=== PATIENT | male | born 1950 | race Caucasian/White ===

== ENCOUNTER 2023-04-25 12:22 | Emergency (ER) | payer OTHER, SELFPAY ==
[2023-04-25] VITALS (7 sets, daily range): BP systolic 93–129; BP diastolic 70–85; PULSE 98–112; RESP 16–22; TEMP 36.9–37.2; O2SAT 97–98; BMI 28.8
--- NOTE | ~2023-04-25 | CT_ITS ---
EXAMINATION: CTA CHEST PE STUDY CLINICAL INFORMATION: Reason for Exam syncope, tachycardic, + dimer COMPARISON: No pertinent prior studies are available for comparison. TECHNIQUE: Prior to contrast administration, noncontrast localization images were obtained. After the administration of 65 mL of Omnipaque nonionic IV contrast, contiguous thin slice helical images were obtained through the thorax. Reformatted MIP images in the coronal and sagittal planes were obtained at the acquisition workstation. This CT examination was performed using dose optimization techniques as appropriate, variously including the following: *Automated exposure control *Adjustment of mA and/or kV according to patient size (this includes techniques or standardized protocols for targeted exams where dose is matched to indication/reason for exam; i.e. extremities or head) *Use of iterative reconstruction technique DLP: 540 mGy-cm. FINDINGS: The examination is degraded by patient respiratory motion during the acquisition phase. Despite this the bolus timing on this study was acceptable for visualization of the pulmonary arterial tree. There are no intraluminal pulmonary arterial filling defects present to suggest central pulmonary embolism. The lungs are clear. No abnormal pulmonary nodules or masses are appreciated. No significant hilar or mediastinal adenopathy. Small hiatal hernia. There is no evidence of pleural effusion or pneumothorax. The heart is normal in size. No evidence of ventricular septal bowing or right heart strain. Vascular calcification within the aorta and coronary vessels. There is no pericardial effusion or pericardial thickening. Limited evaluation of the upper abdominal viscera is unremarkable. CT/CT angio chest PE protocol IMPRESSION: 1. No evidence for central pulmonary emboli. No focal airspace disease. 2. Small hiatal hernia. 3. VTE: Negative.
--- NOTE | ~2023-04-25 | XR_ITS ---
EXAMINATION: CHEST 2 VIEWS CLINICAL INFORMATION: chest pain. COMPARISON: 03/05/2017. TECHNIQUE: PA and lateral views of the chest obtained. FINDINGS: The lungs are well expanded. No focal infiltrate, effusion, edema, or pneumothorax. Cardiac and mediastinal silhouettes are within normal limits for size. Degenerative changes in the spine. No acute bony abnormality seen XR/XR chest 2V IMPRESSION: No evidence of acute disease
--- NOTE | ~2023-04-25 | XR_ITS ---
EXAMINATION: XR HIP, RIGHT CLINICAL INFORMATION: Pain in the right hip COMPARISON: None available. TECHNIQUE: Two views of the right hip and AP pelvis. FINDINGS: Patient is status post placement of 3 compression screws for fracture of right femoral neck. The left hip is unremarkable. The position of hardware is satisfactory. Soft tissues unremarkable. XR/XR hip RT w PEL1V IMPRESSION: Interval healing of right femoral neck fracture with hardware in place
--- NOTE | 2023-04-25 12:32 | ECG_ITS ---
Test Reason : CHEST PAIN Blood Pressure : / mmHG Vent. Rate : 111 BPM Atrial Rate : 111 BPM P-R Int : 164 ms QRS Dur : 088 ms QT Int : 352 ms P-R-T Axes : 067 -58 055 degrees QTc Int : 478 ms Sinus tachycardia Left anterior fascicular block RSR' or QR pattern in V1 suggests right ventricular conduction delay Anteroseptal infarct (cited on or before 04-JAN-2016) Abnormal ECG When compared with ECG of 05-MAR-2017 10:22, Heart rate has decreased Referred By: Generic ED Physician Electronically Signed By:ISIAH PERALTA MD
--- NOTE | 2023-04-25 12:44 | ED.GENADULT ---
HPI - General Adult General Chief complaint: General Medical Stated complaint: Chest Pain R Hip Pain No Injury Time Seen by Provider: 04/25/23 16:46 Source: patient Mode of arrival: ambulatory Limitations: no limitations History of Present Illness HPI narrative: Patient comes to the ED c/o a syncopal episode. Patient states that he was walking, remembers that he lowered himself down to the floor all the way down without hitting his head. Then, when he woke up, patient was surrounded by people. Patient states that he likely passed out. Patient denies any chest pain or shortness of breath. Patient is recovering from an ORIF of the right hip, which was done approximately 2 months ago at [facility]. Patient complaining of right-sided hip pain since he had his surgery. Related Data Home Medications Medication Instructions Recorded Confirmed acetaminophen 325 mg tablet 650 mg PO Q6H PRN Pain 04/26/23 04/26/23 (Tylenol) aspirin 81 mg tablet,delayed See Rx Instructions .Route .COMPLEX 04/26/23 04/26/23 release aspirin 81 mg tablet,delayed See Rx Instructions .Route .COMPLEX 04/26/23 04/26/23 release atorvastatin 20 mg tablet 20 mg PO DAILY 04/26/23 04/26/23 duloxetine 30 mg capsule,delayed 90 mg PO DAILY 04/26/23 04/26/23 release fludrocortisone 0.1 mg tablet 0.1 mg PO DAILY 04/26/23 04/26/23 gabapentin 100 mg capsule 100 mg PO BID 04/26/23 04/26/23 insulin glargine 100 unit/mL (3 45 unit subcut BID 04/26/23 04/26/23 mL) subcutaneous pen (Lantus Solostar U-100 Insulin) oxycodone 5 mg tablet 5 mg PO TID PRN Pain 04/26/23 04/26/23 pantoprazole 20 mg tablet,delayed 20 mg PO DAILY@0630 04/26/23 04/26/23 release sennosides 8.6 mg tablet (senna) 8.6 mg PO BID 04/26/23 04/26/23 trazodone 50 mg tablet 25 mg PO BEDTIME 04/26/23 04/26/23 Allergies Allergy/AdvReac Type Severity Reaction Status Date / Time penicillin V Allergy Unknown Unknown Verified 04/25/23 19:36 Penicillins [PCN] Allergy Unknown SWELLING Verified 04/25/23 19:36 Sulfa (Sulfonamide Allergy Unknown Unknown Verified 04/25/23 19:36 Antibiotics) sulfamethoxazole Allergy Unknown DIFFICULTY Verified 04/25/23 19:36 [From BACTRIM] BREATHING trimethoprim [From BACTRIM] Allergy Unknown DIFFICULTY Verified 04/25/23 19:36 BREATHING Maple Flavor Allergy Unknown Unknown Uncoded 04/25/23 19:36 MAPLE SYRUP Allergy Unknown UNKNOWN Uncoded 04/25/23 19:36 Review of Systems Review of Systems: Constitutional : No Weight loss, No Fever, No Chills, No Night Sweats, No Fatigue, No Malaise ENT/Mouth : No Hearing loss, No Ear Pain, No Nasal Congestion, No Sinus Pain, No Hoarseness, No sore throat, No Rhinorrhea, No Swallowing Difficulty Eyes: No Eye Pain, No Swelling, No Redness, No Foreign Body, No Discharge, No Vision Changes Cardiovascular : No Chest Pain, No SOB, No Dyspnea on Exertion, No Orthopnea, No Edema, No Palpitations Respiratory : No Cough, No Sputum, No Wheezing, No Smoke Exposure, No Dyspnea Gastrointestinal : No Nausea, No Vomiting, No Diarrhea, No Constipation, No abdominal Pain, No Hematochezia, No Melena Genitourinary : no irregular bleeding, No Dysuria, No Urinary Frequency, No Hematuria, No Urinary Incontinence, No Urgency, No Flank Pain, No Urinary Flow Changes, No Hesitancy Musculoskeletal : Complaining of right hip pain since surgery 2 months ago No Myalgias, No Joint Swelling Skin : No Skin Lesions, No rash Neuro : No Weakness, No Numbness, No Paresthesias, complaining of a syncopal episode, No Dizziness, No Headache Psych : No Anxiety/Panic, No Depression, No SI/HI/AH/VH, No Social Issues, Heme/Lymph: No Bruising, No Bleeding,No Lymphadenopathy Endocrine : No Polyuria, No Polydipsia, No Temperature Intolerance [facility] Past Medical History Medical History (Updated 04/29/23 @ 00:03 by Serena Nguyen) Type 2 diabetes mellitus Hip fracture Social History Alcohol intake: never Smoked in Last 30 Days: No Use of substances other than those prescribed or required for medical reasons: No Advance Directives: Yes Advance Directives on File: Yes Advance Directives Date on File: 04/26/23 Physical Exam ED Vital Signs: Vital Signs - 24 hr 04/29/23 21:50 04/30/23 05:47 04/30/23 06:32 Temperature 98.3 F 97.7 F Pulse Rate 85 83 Respiratory Rate 18 19 16 Blood Pressure 132/78 106/70 Pulse Oximetry 97 98 Oxygen Delivery Method Room Air Room Air BMI result Body Mass Index 28.8 Const Other: Appearance: Alert. Oriented X3. No acute distress. Eyes: Pupils equal, round and reactive to light. ENT: Pharynx normal. Neck: Normal inspection. Neck supple. No lymph nodes noted. No crepitus CVS: Normal heart rate and rhythm. Pulses normal. Normal S1 and S2 Respiratory: No respiratory distress. Breath sounds normal. No Wheezing. No rales Abdomen: Soft and nontender. No rigidity. No distention. Skin: Skin warm and dry. Normal skin color. Normal skin turgor. No signs of trauma Extremities: No lower extremity edema. No Lacerations. No Rash Neuro: Oriented X 3. No motor deficit. No sensory deficit. Moving all extremities. No slurred speech. CN 2 through 12 grossly intact Psych: calm, cooperative, normal affect Course Course Course Narrative: This is an RME: Additional HPI, ROS, PE not included below will be deferred to primary provider. This is a [id number], with unknown PMHx but had recent ORIF, presenting to the emergency department with complaints of right hip pain. He also endorses some chest pain, nausea, and weakness. He states that he has a right hip fracture 2 weeks ago and had this pinned together and is concerned that it is coming out . No recent falls. Pt is homeless, came with [facility]'s social workers concerned as he was complaining of chest pain and worsening right hip pain today. Plan: Labs, cxr, r hip xray w/ pelvis ordered. Reevaluation(s) Reevaluation #1: No complaints from nursing overnight. Vital signs reviewed and stable. Medications reconciled for this morning. Pending physical therapy evaluation and case management involvement Reevaluation #2: At this time physician observation to be continued. Uneventful night per nursing. Vital signs are stable. Med reconciliation done. Pending PT and case management. Will continue to monitor Time: 07:16 Reevaluation #3: 04/28/23--1410--physician observation continued. Vital signs stable. Physical therapy attempted to evaluate patient on 04/26 however patient declined participation. Case management following for discharge needs 04/29/23 1800-- vital signs have remained stable. No acute overnight events. Patient now requesting physical therapy. New order placed. Patient noted to have UTI > will treat with ceftin bid. Case management continuing to follow. Physician observation continued. 04/30/23 0745-- Vital signs have remained stable overnight. No acute overnight events per nursing report. Patient currently being treated for UTI. Physical therapy has evaluated patient and recommends short-term rehab. Case management continuing to follow for placement. Physician observation continued. 1409 04/30/23-- Spoke with Vania from case management. Patient will be discharged home as he will not qualify for [employer]. He has been up and ambulating with physical therapy. Physician observation ended. Medications Administered Generic Name Dose Route Start Last Admin Trade Name Freq PRN Reason Stop Dose Admin Acetaminophen 650 mg 04/26/23 14:26 04/30/23 05:29 Acetaminophen 325 Mg Tablet PO 650 mg QID PRN Administration Pain, Mild (Pain Scale 1-3) Aspirin 81 mg 04/27/23 09:00 04/30/23 08:32 Aspirin Enteric Coated 81 Mg Tablet. PO 81 mg DAILY DORETHA Administration Atorvastatin Calcium 20 mg 04/26/23 09:00 04/30/23 08:32 Atorvastatin Calcium 20 Mg Tablet PO 20 mg DAILY DORETHA Administration Cefuroxime Axetil 250 mg 04/30/23 06:00 04/30/23 05:27 Cefuroxime Axetil 250 Mg Tablet PO 250 mg Q12H DORETHA Administration Duloxetine HCl 90 mg 04/26/23 09:00 04/30/23 08:31 Duloxetine Hcl 30 Mg Capsule. PO 90 mg DAILY DORETHA Administration Fludrocortisone Acetate 0.1 mg 04/27/23 09:00 04/30/23 08:32 Fludrocortisone Acetate 0.1 Mg Tablet PO 0.1 mg DAILY DORETHA Administration Gabapentin 100 mg 04/26/23 09:00 04/29/23 15:24 Gabapentin 100 Mg Capsule PO 100 mg DAILY DORETHA Administration Gabapentin 100 mg 04/26/23 15:04 04/30/23 09:59 Gabapentin 100 Mg Capsule PO 100 mg TID PRN Administration Pain, Moderate(Pain Scale 4-6) Ibuprofen 600 mg 04/26/23 15:04 04/30/23 09:59 Ibuprofen 600 Mg Tablet PO 600 mg TID PRN Administration Pain, Mild (Pain Scale 1-3) Insulin Glargine 45 unit 04/27/23 09:00 04/30/23 08:33 Insulin Glargine,Hum.Rec.Anlog 100 Unit/Ml 10 Ml Vial SUBCUT 45 unit BID [facility] Administration Insulin Human Lispro 0 unit 04/29/23 16:30 04/30/23 11:37 Insulin Lispro 100 Unit/Ml 3 Ml Vial SUBCUT 2 unit QIDACHS [facility] Administration Protocol Omeprazole 20 mg 04/26/23 11:45 04/30/23 05:27 Omeprazole 20 Mg Capsule.Dr PO 20 mg DAILY@0630 [facility] Administration Oxycodone HCl 5 mg 04/26/23 09:00 04/30/23 08:31 Oxycodone Hcl Immed Release 5 Mg Tablet PO 5 mg TID PRN Administration Pain, Severe (Pain Scale 7-10) Senna 8.6 mg 04/27/23 09:00 04/30/23 08:31 Sennosides 8.6 Mg Tablet PO 8.6 mg BID [facility] Administration Trazodone HCl 25 mg 04/26/23 21:00 04/29/23 21:45 Trazodone Hcl 50 Mg Tablet PO 25 mg BEDTIME [facility] Administration Discontinued Medications Generic Name Dose Route Start Last Admin Trade Name Freq PRN Reason Stop Dose Admin Acetaminophen 975 mg 04/25/23 20:07 04/25/23 20:17 Acetaminophen 325 Mg Tablet PO 04/25/23 20:08 975 mg ONCE ONE Administration Cefuroxime Axetil 250 mg 04/29/23 18:04 04/29/23 18:32 Cefuroxime Axetil 250 Mg Tablet PO 04/29/23 18:05 250 mg ONCE ONE Administration Cefuroxime Axetil 250 mg 04/29/23 21:00 04/29/23 21:42 Cefuroxime Axetil 250 Mg Tablet PO Not Given BID [facility] Diphenhydramine HCl 50 mg 04/26/23 00:59 04/26/23 01:07 Diphenhydramine Hcl 25 Mg Capsule PO 04/26/23 01:00 50 mg ONCE ONE Administration Insulin Human Lispro 5 unit 04/27/23 16:51 04/27/23 17:16 Insulin Lispro 100 Unit/Ml 3 Ml Vial SUBCUT 04/27/23 16:52 5 unit ONCE ONE Administration Iohexol 100 ml 04/25/23 18:50 04/25/23 18:51 Iohexol 350 Mg/Ml 100 Ml Infus..Btl IV 04/25/23 18:51 65 ml ONCE ONE Administration Ketorolac Tromethamine 30 mg 04/25/23 21:32 04/25/23 22:05 Ketorolac Tromethamine 30 Mg/Ml Vial IVPUSH 04/25/23 21:33 30 mg ONCE ONE Administration Levofloxacin 500 mg 04/25/23 20:07 04/25/23 20:17 Levofloxacin 500 Mg Tablet PO 04/25/23 20:08 500 mg ONCE ONE Administration Lorazepam 2 mg 04/26/23 00:59 04/26/23 01:07 Lorazepam 1 Mg Tablet PO 04/26/23 01:00 2 mg ONCE ONE Administration Morphine Sulfate 2 mg 04/25/23 22:16 04/25/23 22:31 Morphine Sulfate 4 Mg/Ml Cartridge IVPUSH 04/25/23 22:17 2 mg ONCE ONE Administration Protocol Oxycodone HCl 5 mg 04/26/23 00:59 04/26/23 01:07 Oxycodone Hcl Immed Release 5 Mg Tablet PO 04/26/23 01:00 5 mg ONCE ONE Administration Oxycodone HCl 10 mg 04/27/23 23:13 04/28/23 05:59 Oxycodone Hcl Immed Release 5 Mg Tablet PO 04/27/23 23:14 10 mg ONCE ONE Administration Medical Decision Making Medical Decision Making MDM Narrative: Sodium 133, no correction needed-my interpretation of labs: Normal hematology, platelets a bit elevated at 557. Troponin 1. Negative -my interpretation of EKG: Sinus tachycardia, heart rate 111, no ST segment depression with patient, no T-wave inversions, QTC 478 -urine toxicology, alcohol level and D-dimer pending -urine toxicology negative, alcohol level negative, D-dimer positive -my interpretation of CTA of the lungs: No DVT -CT scan for pulmonary embolism negative -patient has a UTI, cefuroxime was given in the emergency room -I diligent was attempted with attack. Patient states that he has too much pain in the right hip and cannot walk. Not even with a walker. -care team consult and case management consult pending -Physician observation started at 21:00 -given the patient's inability to walk, it is likely that the patient fell secondary to hip pain Differential Diagnosis Differential Diagnoses: The differential diagnosis associated with the presentation includes (Mechanical fall, near syncope, syncope, PE) Admission/Observation Consideration of admission/observation: Escalation of care including admission/observation considered (Given patient's initial history and presentation, admission was considered.) Lab Data MDM Lab Attestation statement: I reviewed the patient's lab results. 04/25/23 13:12 04/25/23 13:12 Labs: Lab Results 04/25/23 04/25/23 04/25/23 Range/Units 13:12 17:21 19:36 WBC 8.1 (4.8-10.8) X10*3/uL RBC 5.09 (4.60-5.80) X10*6/uL Hgb 14.2 (14.0-18.0) g/dl Hct 42.3 (42.0-52.0) % MCV 83.1 (80.0-98.0) fL MCH 27.9 (27.0-33.0) pg MCHC 33.6 (31.0-36.0) g/dl RDW 13.4 (11.0-16.0) % Plt Count 557 H (160-400) X10*3/uL MPV 9.1 L (9.4-12.4) fL Immature Gran % (Auto) 0.2 (0.0-0.4) % Neut % (Auto) 77.6 H (45-73) % Lymph % (Auto) 12.4 L (20-40) % [place] % (Auto) 9.0 (2-11) % Eos % (Auto) 0.4 (0-4) % Baso % (Auto) 0.4 (0-2) % Lymph # (Auto) 1.0 L (1.2-4.9) X10*3/uL [place] # (Auto) 0.7 (0.1-1.2) X10*3/uL Eos # (Auto) 0.0 (0.0-0.4) X10*3/uL Baso # (Auto) 0.0 (0.0-0.2) X10*3/uL Abs Immat Gran (auto) 0.02 (0.00-0.03) X10*3/uL Absolute Neuts (auto) 6.3 (2.0-8.3) x10*3/uL Absolute Nucleated RBC 0.000 (0.0-0.012) X10*3/uL Nucleated RBC % (auto) 0.0 (0.0-0.2) /100WBC D-Dimer High Sensitivty 530 NG/ML Sodium 133 L (135-145) mmol/L Potassium 4.8 (3.3-5.1) mmol/L Chloride 102 (96-108) mmol/L Carbon Dioxide 22 (22-29) mmol/L Anion Gap 15 (12-20) BUN 20 H (9-16) mg/dL Creatinine 0.92 (0.5-1.4) mg/dL Estim Creat Clear Calc 89.8 Estimated GFR > 60 POC Glucose (60-115) mg/dL Random Glucose 266 H (60-115) mg/dL Calcium 9.9 (8.4-10.2) mg/dL Magnesium 1.9 (1.6-2.6) mg/dL Total Bilirubin 0.5 (0.0-1.0) mg/dL Direct Bilirubin 0.2 (0.0-0.5) mg/dL AST 14 (5-37) U/L ALT 15 (0-40) U/L Alkaline Phosphatase 217 H (39-117) U/L Troponin I High Sens 6.0 (<3.5-35.0) ng/L Total Protein 8.3 H (6.5-8.0) g/dL Albumin 4.0 (3.5-5.0) g/dL Urine Color Yellow Urine Appearance Turbid Urine pH 6.0 (5.0-9.0) Ur Specific [place] 1.025 (1.005-1.025) Urine Protein 30 (1+) H (Neg-Trace) mg/dL Urine Glucose (UA) 500 H (Negative) mg/dL Urine Ketones Trace (Negative) mg/dL Urine Blood Small (1+) H (Negative) Urine Nitrite Negative (Negative) Ur Leukocyte Esterase Large (3+) H (Negative) Urine RBC 0-2 (0-2) /HPF Urine WBC >50 H (0-5) /HPF Ur Squamous Epith Cells 3-5 (0-2) /HPF Urine Bacteria 1+ (None Seen) Hyaline Casts 0-2 (0-2) /LPF Urine Yeast Present Urine Opiates Screen Not Detected (Not Detect) Urine Fentanyl Screen Not Detected (Not Detect) Ur Barbiturates Screen Not Detected (Not Detect) Ur Phencyclidine Scrn Not Detected (Not Detect) Ur Amphetamines Screen Not Detected (Not Detect) U Benzodiazepines Scrn Not Detected (Not Detect) Urine Cocaine Screen Not Detected (Not Detect) U Marijuana (THC) Screen Not Detected (Not Detect) Ethyl Alcohol 11 mg/dL COVID-19 (JULIANNA) (Negative) COVID-19 Clin Com 04/26/23 04/27/23 04/27/23 Range/Units 08:59 08:04 11:48 WBC (4.8-10.8) X10*3/uL RBC (4.60-5.80) X10*6/uL Hgb (14.0-18.0) g/dl Hct (42.0-52.0) % MCV (80.0-98.0) fL MCH (27.0-33.0) pg MCHC (31.0-36.0) g/dl RDW (11.0-16.0) % Plt Count (160-400) X10*3/uL MPV (9.4-12.4) fL Immature Gran % (Auto) (0.0-0.4) % Neut % (Auto) (45-73) % Lymph % (Auto) (20-40) % [place]acken % (Auto) (2-11) % Eos % (Auto) (0-4) % Baso % (Auto) (0-2) % Lymph # (Auto) (1.2-4.9) X10*3/uL [place] # (Auto) (0.1-1.2) X10*3/uL Eos # (Auto) (0.0-0.4) X10*3/uL Baso # (Auto) (0.0-0.2) X10*3/uL Abs Immat Gran (auto) (0.00-0.03) X10*3/uL Absolute Neuts (auto) (2.0-8.3) x10*3/uL Absolute Nucleated RBC (0.0-0.012) X10*3/uL Nucleated RBC % (auto) (0.0-0.2) /100WBC D-Dimer High Sensitivty NG/ML Sodium (135-145) mmol/L Potassium (3.3-5.1) mmol/L Chloride (96-108) mmol/L Carbon Dioxide (22-29) mmol/L Anion Gap (12-20) BUN (9-16) mg/dL Creatinine (0.5-1.4) mg/dL Estim Creat Clear Calc Estimated GFR POC Glucose 259 H 269 H (60-115) mg/dL Random Glucose (60-115) mg/dL Calcium (8.4-10.2) mg/dL Magnesium (1.6-2.6) mg/dL Total Bilirubin (0.0-1.0) mg/dL Direct Bilirubin (0.0-0.5) mg/dL AST (5-37) U/L ALT (0-40) U/L Alkaline Phosphatase (39-117) U/L Troponin I High Sens (<3.5-35.0) ng/L Total Protein (6.5-8.0) g/dL Albumin (3.5-5.0) g/dL Urine Color Urine Appearance Urine pH (5.0-9.0) Ur Specific [place] (1.005-1.025) Urine Protein (Neg-Trace) mg/dL Urine Glucose (UA) (Negative) mg/dL Urine Ketones (Negative) mg/dL Urine Blood (Negative) Urine Nitrite (Negative) Ur Leukocyte Esterase (Negative) Urine RBC (0-2) /HPF Urine WBC (0-5) /HPF Ur Squamous Epith Cells (0-2) /HPF Urine Bacteria (None Seen) Hyaline Casts (0-2) /LPF Urine Yeast Urine Opiates Screen (Not Detect) Urine Fentanyl Screen (Not Detect) Ur Barbiturates Screen (Not Detect) Ur Phencyclidine Scrn (Not Detect) Ur Amphetamines Screen (Not Detect) U Benzodiazepines Scrn (Not Detect) Urine Cocaine Screen (Not Detect) U Marijuana (THC) Screen (Not Detect) Ethyl Alcohol mg/dL COVID-19 (JULIANNA) Negative (Negative) COVID-19 Clin Com 04/27/23 04/27/23 04/28/23 Range/Units 15:26 19:03 19:22 WBC (4.8-10.8) X10*3/uL RBC (4.60-5.80) X10*6/uL Hgb (14.0-18.0) g/dl Hct (42.0-52.0) % MCV (80.0-98.0) fL MCH (27.0-33.0) pg MCHC (31.0-36.0) g/dl RDW (11.0-16.0) % Plt Count (160-400) X10*3/uL MPV (9.4-12.4) fL Immature Gran % (Auto) (0.0-0.4) % Neut % (Auto) (45-73) % Lymph % (Auto) (20-40) % [place] % (Auto) (2-11) % Eos % (Auto) (0-4) % Baso % (Auto) (0-2) % Lymph # (Auto) (1.2-4.9) X10*3/uL [place] # (Auto) (0.1-1.2) X10*3/uL Eos # (Auto) (0.0-0.4) X10*3/uL Baso # (Auto) (0.0-0.2) X10*3/uL Abs Immat Gran (auto) (0.00-0.03) X10*3/uL Absolute Neuts (auto) (2.0-8.3) x10*3/uL Absolute Nucleated RBC (0.0-0.012) X10*3/uL Nucleated RBC % (auto) (0.0-0.2) /100WBC D-Dimer High Sensitivty NG/ML Sodium (135-145) mmol/L Potassium (3.3-5.1) mmol/L Chloride (96-108) mmol/L Carbon Dioxide (22-29) mmol/L Anion Gap (12-20) BUN (9-16) mg/dL Creatinine (0.5-1.4) mg/dL Estim Creat Clear Calc Estimated GFR POC Glucose 224 H 169 H 175 H (60-115) mg/dL Random Glucose (60-115) mg/dL Calcium (8.4-10.2) mg/dL Magnesium (1.6-2.6) mg/dL Total Bilirubin (0.0-1.0) mg/dL Direct Bilirubin (0.0-0.5) mg/dL AST (5-37) U/L ALT (0-40) U/L Alkaline Phosphatase (39-117) U/L Troponin I High Sens (<3.5-35.0) ng/L Total Protein (6.5-8.0) g/dL Albumin (3.5-5.0) g/dL Urine Color Urine Appearance Urine pH (5.0-9.0) Ur Specific [place] (1.005-1.025) Urine Protein (Neg-Trace) mg/dL Urine Glucose (UA) (Negative) mg/dL Urine Ketones (Negative) mg/dL Urine Blood (Negative) Urine Nitrite (Negative) Ur Leukocyte Esterase (Negative) Urine RBC (0-2) /HPF Urine WBC (0-5) /HPF Ur Squamous Epith Cells (0-2) /HPF Urine Bacteria (None Seen) Hyaline Casts (0-2) /LPF Urine Yeast Urine Opiates Screen (Not Detect) Urine Fentanyl Screen (Not Detect) Ur Barbiturates Screen (Not Detect) Ur Phencyclidine Scrn (Not Detect) Ur Amphetamines Screen (Not Detect) U Benzodiazepines Scrn (Not Detect) Urine Cocaine Screen (Not Detect) U Marijuana (THC) Screen (Not Detect) Ethyl Alcohol mg/dL COVID-19 (JULIANNA) (Negative) COVID-19 Clin Com 04/29/23 04/29/23 04/29/23 Range/Units 07:26 11:38 16:32 WBC (4.8-10.8) X10*3/uL RBC (4.60-5.80) X10*6/uL Hgb (14.0-18.0) g/dl Hct (42.0-52.0) % MCV (80.0-98.0) fL MCH (27.0-33.0) pg MCHC (31.0-36.0) g/dl RDW (11.0-16.0) % Plt Count (160-400) X10*3/uL MPV (9.4-12.4) fL Immature Gran % (Auto) (0.0-0.4) % Neut % (Auto) (45-73) % Lymph % (Auto) (20-40) % [place] % (Auto) (2-11) % Eos % (Auto) (0-4) % Baso % (Auto) (0-2) % Lymph # (Auto) (1.2-4.9) X10*3/uL [place] # (Auto) (0.1-1.2) X10*3/uL Eos # (Auto) (0.0-0.4) X10*3/uL Baso # (Auto) (0.0-0.2) X10*3/uL Abs Immat Gran (auto) (0.00-0.03) X10*3/uL Absolute Neuts (auto) (2.0-8.3) x10*3/uL Absolute Nucleated RBC (0.0-0.012) X10*3/uL Nucleated RBC % (auto) (0.0-0.2) /100WBC D-Dimer High Sensitivty NG/ML Sodium (135-145) mmol/L Potassium (3.3-5.1) mmol/L Chloride (96-108) mmol/L Carbon Dioxide (22-29) mmol/L Anion Gap (12-20) BUN (9-16) mg/dL Creatinine (0.5-1.4) mg/dL Estim Creat Clear Calc Estimated GFR POC Glucose 68 149 H 152 H (60-115) mg/dL Random Glucose (60-115) mg/dL Calcium (8.4-10.2) mg/dL Magnesium (1.6-2.6) mg/dL Total Bilirubin (0.0-1.0) mg/dL Direct Bilirubin (0.0-0.5) mg/dL AST (5-37) U/L ALT (0-40) U/L Alkaline Phosphatase (39-117) U/L Troponin I High Sens (<3.5-35.0) ng/L Total Protein (6.5-8.0) g/dL Albumin (3.5-5.0) g/dL Urine Color Urine Appearance Urine pH (5.0-9.0) Ur Specific [place] (1.005-1.025) Urine Protein (Neg-Trace) mg/dL Urine Glucose (UA) (Negative) mg/dL Urine Ketones (Negative) mg/dL Urine Blood (Negative) Urine Nitrite (Negative) Ur Leukocyte Esterase (Negative) Urine RBC (0-2) /HPF Urine WBC (0-5) /HPF Ur Squamous Epith Cells (0-2) /HPF Urine Bacteria (None Seen) Hyaline Casts (0-2) /LPF Urine Yeast Urine Opiates Screen (Not Detect) Urine Fentanyl Screen (Not Detect) Ur Barbiturates Screen (Not Detect) Ur Phencyclidine Scrn (Not Detect) Ur Amphetamines Screen (Not Detect) U Benzodiazepines Scrn (Not Detect) Urine Cocaine Screen (Not Detect) U Marijuana (THC) Screen (Not Detect) Ethyl Alcohol mg/dL COVID-19 (JULIANNA) (Negative) COVID-19 Clin Com 04/29/23 04/30/23 04/30/23 Range/Units 21:44 07:14 11:32 WBC (4.8-10.8) X10*3/uL RBC (4.60-5.80) X10*6/uL Hgb (14.0-18.0) g/dl Hct (42.0-52.0) % MCV (80.0-98.0) fL MCH (27.0-33.0) pg MCHC (31.0-36.0) g/dl RDW (11.0-16.0) % Plt Count (160-400) X10*3/uL MPV (9.4-12.4) fL Immature Gran % (Auto) (0.0-0.4) % Neut % (Auto) (45-73) % Lymph % (Auto) (20-40) % [place] % (Auto) (2-11) % Eos % (Auto) (0-4) % Baso % (Auto) (0-2) % Lymph # (Auto) (1.2-4.9) X10*3/uL [place] # (Auto) (0.1-1.2) X10*3/uL Eos # (Auto) (0.0-0.4) X10*3/uL Baso # (Auto) (0.0-0.2) X10*3/uL Abs Immat Gran (auto) (0.00-0.03) X10*3/uL Absolute Neuts (auto) (2.0-8.3) x10*3/uL Absolute Nucleated RBC (0.0-0.012) X10*3/uL Nucleated RBC % (auto) (0.0-0.2) /100WBC D-Dimer High Sensitivty NG/ML Sodium (135-145) mmol/L Potassium (3.3-5.1) mmol/L Chloride (96-108) mmol/L Carbon Dioxide (22-29) mmol/L Anion Gap (12-20) BUN (9-16) mg/dL Creatinine (0.5-1.4) mg/dL Estim Creat Clear Calc Estimated GFR POC Glucose 163 H 61 178 H (60-115) mg/dL Random Glucose (60-115) mg/dL Calcium (8.4-10.2) mg/dL Magnesium (1.6-2.6) mg/dL Total Bilirubin (0.0-1.0) mg/dL Direct Bilirubin (0.0-0.5) mg/dL AST (5-37) U/L ALT (0-40) U/L Alkaline Phosphatase (39-117) U/L Troponin I High Sens (<3.5-35.0) ng/L Total Protein (6.5-8.0) g/dL Albumin (3.5-5.0) g/dL Urine Color Urine Appearance Urine pH (5.0-9.0) Ur Specific [place] (1.005-1.025) Urine Protein (Neg-Trace) mg/dL Urine Glucose (UA) (Negative) mg/dL Urine Ketones (Negative) mg/dL Urine Blood (Negative) Urine Nitrite (Negative) Ur Leukocyte Esterase (Negative) Urine RBC (0-2) /HPF Urine WBC (0-5) /HPF Ur Squamous Epith Cells (0-2) /HPF Urine Bacteria (None Seen) Hyaline Casts (0-2) /LPF Urine Yeast Urine Opiates Screen (Not Detect) Urine Fentanyl Screen (Not Detect) Ur Barbiturates Screen (Not Detect) Ur Phencyclidine Scrn (Not Detect) Ur Amphetamines Screen (Not Detect) U Benzodiazepines Scrn (Not Detect) Urine Cocaine Screen (Not Detect) U Marijuana (THC) Screen (Not Detect) Ethyl Alcohol mg/dL COVID-19 (JULIANNA) (Negative) COVID-19 Clin Com Independent Interpretation I performed an independent interpretation of an: CT Scan Radiology Impression Discussion of test interpretation with radiology: I have reviewed the radiologist's reading. Radiologist Impression: FINDINGS: The examination is degraded by patient respiratory motion during the acquisition phase. Despite this the bolus timing on this study was acceptable for visualization of the pulmonary arterial tree. There are no intraluminal pulmonary arterial filling defects present to suggest central pulmonary embolism. The lungs are clear. No abnormal pulmonary nodules or masses are appreciated. No significant hilar or mediastinal adenopathy. Small hiatal hernia. There is no evidence of pleural effusion or pneumothorax. The heart is normal in size. No evidence of ventricular septal bowing or right heart strain. Vascular calcification within the aorta and coronary vessels. There is no pericardial effusion or pericardial thickening. Limited evaluation of the upper abdominal viscera is unremarkable. CT/CT angio chest PE protocol IMPRESSION: 1. No evidence for central pulmonary emboli. No focal airspace disease. 2. Small hiatal hernia. 3. VTE: Negative. Critical Care Time Critical Care Time Critical Care Time: Yes Total Critical Care Time: 60 Attestation: I have personally provided critical care time. Time includes review of lab data, radiology results, discussion with consultants, and monitoring for potential decompensation. Intervention performed as documented. Discharge Plan Discharge Clinical Impression: Chronic hip pain, Syncope Patient Disposition: Home, Self-Care Prescriptions: No Action atorvastatin 20 mg tablet 20 mg PO DAILY trazodone 50 mg tablet 25 mg PO BEDTIME pantoprazole 20 mg tablet,delayed release (DR/EC) 20 mg PO DAILY@0630 gabapentin 100 mg capsule 100 mg PO BID oxycodone 5 mg tablet 5 mg PO TID PRN (Reason: Pain) duloxetine 30 mg capsule,delayed release(DR/EC) 90 mg PO DAILY fludrocortisone 0.1 mg tablet 0.1 mg PO DAILY insulin glargine [Lantus Solostar U-100 Insulin] 100 unit/mL (3 mL) insulin pen 45 unit subcut BID sennosides [senna] 8.6 mg Tablet 8.6 mg PO BID acetaminophen [Tylenol] 325 mg Tablet 650 mg PO Q6H PRN (Reason: Pain) aspirin 81 mg Tablet,Delayed Release (Dr/Ec) See Rx Instructions .ROUTE .COMPLEX Rx Instructions: 81 mg orally BID ;END DATE: 05/04/23 aspirin 81 mg Tablet,Delayed Release (/Ec) See Rx Instructions .ROUTE .COMPLEX Rx Instructions: 81 mg orally daily ;START DATE: 05/05/23
[2023-04-25 13:18] LABS: MANUAL DIFF FLAG NO
[2023-04-25 13:20] LABS: Basophils Percent Auto 0.4 % (0-2); Eosinophils Percent Auto 0.4 % (0-4); Hematocrit 42.3 % (42.0-52.0); Hemoglobin 14.2 g/dl (14.0-18.0); Imm Gran Abs Auto 0.02 X10*3/uL (0.00-0.03); Imm Gran Pct Auto 0.2 % (0.0-0.4); Lymphocytes Percent Auto 12.4 % (20-40); Mean Corpuscular HGB Conc 33.6 g/dl (31.0-36.0); Mean Corpuscular Hemoglobin 27.9 pg (27.0-33.0); Mean Corpuscular Volume 83.1 fL (80.0-98.0); Mean Platelet Volume 9.1 fL (9.4-12.4); Monocytes Absolute Auto 0.7 X10*3/uL (0.1-1.2); Neutrophils Absolute Auto 6.3 x10*3/uL (2.0-8.3); Neutrophils Percent Auto 77.6 % (45-73); Platelet Count 557 X10*3/uL (160-400); Red Blood Count 5.09 X10*6/uL (4.60-5.80); Red Cell Distribution Width 13.4 % (11.0-16.0); White Blood Count 8.1 X10*3/uL (4.8-10.8)
[2023-04-25 13:45] LABS: Alanine Aminotransferase 15 U/L (0-40); Alkaline Phosphatase 217 U/L (39-117); Aspartate Amino Transferase 14 U/L (5-37); Bilirubin Direct 0.2 mg/dL (0.0-0.5); Bilirubin Total 0.5 mg/dL (0.0-1.0); Blood Urea Nitrogen 20 mg/dL (9-16); Calcium 9.9 mg/dL (8.4-10.2); Carbon Dioxide 22 mmol/L (22-29); Creatinine Clr Calc Pharmacy 89.8; Estimated Glomerular Filt Rate > 60; Glucose Random 266 mg/dL (60-115); Total Protein 8.3 g/dL (6.5-8.0)
[2023-04-25 13:54] LABS: Anion Gap 15 (12-20); Chloride 102 mmol/L (96-108); Potassium 4.8 mmol/L (3.3-5.1); Sodium 133 mmol/L (135-145)
[2023-04-25 17:47] LABS: D Dimer High Sensitivity 530 NG/ML
[2023-04-25 17:58] LABS: Ethanol 11 mg/dL; Magnesium 1.9 mg/dL (1.6-2.6)
[2023-04-25] MEDS: iohexoL 350 MG/ML 100 ML INFUS..BTL IV (18:51)
--- NOTE | 2023-04-25 19:24 | MHC.EDTECH ---
This pct assumed care of pt at 1900 ,vitals taken ,pt was given dinner ate 100 % of meal ,Call flores within Pt reach .
--- NOTE | 2023-04-25 19:38 | MHC.EDTECH ---
Patient urine sample collected and sent to lab .
[2023-04-25 19:50] LABS: Appearance Urine Turbid; Color Urine Yellow; Glucose Urine UA 500 mg/dL (Negative); Leukocyte Esterase Urine Large (3+) (Negative); Nitrite Urine Negative (Negative); Specific Gravity - Urine 1.025 (1.005-1.025); UMIC TRIGGER UACC YES; Urine Blood Small (1+) (Negative); Urine Ketones Trace mg/dL (Negative); Urine Protein 30 (1+) mg/dL (Neg-Trace)
[2023-04-25 19:58] LABS: Amphetamine Screen Urine Not Detected (Not Detect); Barbiturates, Urine Not Detected (Not Detect); Benzodiazepines Screen Urine Not Detected (Not Detect); Cannabinoid Screen Urine Not Detected (Not Detect); Cocaine Screen Urine Not Detected (Not Detect); Fentanyl, urine Not Detected (Not Detect); Opiate Screen Urine Not Detected (Not Detect); Phencyclidine Screen Urine Not Detected (Not Detect)
[2023-04-25] MEDS: levoFLOXacin 500 MG TABLET PO (20:17)
[2023-04-25] MEDS: Acetaminophen 325 MG TABLET 975 MG PO (20:17)
--- NOTE | 2023-04-25 20:20 | PC.NURSE ---
pt c/o 10/10 right leg pain at this time. medication administered per provider order. will perform ambulation trial shortly.
[2023-04-25 20:28] LABS: Bacteria Urine 1+ (None Seen); Hyaline Casts Urine 0-2 /LPF (0-2); RBC Urine 0-2 /HPF (0-2); UACC Culture Trigger YES; WBC Urine >50 /HPF (0-5)
--- NOTE | 2023-04-25 20:59 | MHC.EDTECH ---
Per Provider order ,this pct tried to walk walk Patient with a walker ,pt stand up ,took a couple of steps and said i can't walk ,because of pain,Provider and RN aware .
[2023-04-25] MEDS: Ketorolac Tromethamine 30 MG/ML VIAL IVPUSH (22:05)
[2023-04-25] MEDS: Morphine Sulfate 4 MG/ML CARTRIDGE 2 MG IVPUSH (22:31)
--- NOTE | 2023-04-25 22:34 | PC.NURSE ---
Patient continues to complain of lower back and right hip pain. Patient reports pain has been ranging from 7/10-10/10. Dr. Arora made aware. Patient medicated with Morphine 2 mg IV push, effect pending.
[2023-04-26] VITALS (8 sets, daily range): BP systolic 122–156; BP diastolic 71–86; PULSE 74–100; RESP 16–18; TEMP 36.5–36.8; O2SAT 95–97
[2023-04-26] MEDS: diphenhydrAMINE HCL 25 MG CAPSULE 50 MG PO (01:07)
[2023-04-26] MEDS: LORazepam 1 MG TABLET 2 MG PO (01:07)
[2023-04-26] MEDS: oxyCODONE HCl Immed Release 5 MG TABLET PO ×2 (01:07→12:27)
[2023-04-26 09:21] LABS: COVID-19 Test Negative (Negative); IDNOW Serial# BCCEAD1C
--- NOTE | 2023-04-26 10:30 | PC.NURSE ---
pt settled in to overflow from ed. tv placed on. new sheets. call flores in reach, bed alarm on. no distress. breathing well. +CMS. calm, cooperative, aox4.
--- NOTE | 2023-04-26 11:12 | PC.NURSE ---
pharmacy at bedside completing med rec.
--- NOTE | 2023-04-26 11:21 | PC.NURSE ---
awaiting pharmacy to verify meds- phmar tech done w med rec at bedside now
--- NOTE | 2023-04-26 11:35 | PHA.MEDREC ---
Pharmacy Consult ? Medication Reconciliation Pharmacy has completed the medication reconciliation. Spoke to patient to confirm meds. Patient confirmed atorvastatin, cymbalta, fludrocortisone, gabapentin, lantus 45 units BID, oxycodone, pantoprazole, aspirin, and trazodone. Called pharmacy to confirm meds as well and they mentioned additions of tylenol, senna. Aspirin is 81mg BID until 05/04/23 and then 81mg daily starting 05/05/23.
[2023-04-26] MEDS: Gabapentin 100 MG CAPSULE PO ×3 (11:56→21:17)
[2023-04-26] MEDS: DULoxetine HCl 30 MG CAPSULE.DR 90 MG PO (11:56)
[2023-04-26] MEDS: Atorvastatin Calcium 20 MG TABLET PO (11:56)
[2023-04-26] MEDS: Omeprazole 20 MG CAPSULE.DR PO (12:02)
--- NOTE | 2023-04-26 12:02 | PC.NURSE ---
eating well. no distress. sitting up. bed alarm on
--- NOTE | 2023-04-26 14:08 | PC.NURSE ---
alfonzod jayme landaverde provider as pt req'ing med additional to oxycodone for generalized pain. given warm blanket. offered reposition.
[2023-04-26] MEDS: Acetaminophen 325 MG TABLET 650 MG PO (14:37)
--- NOTE | 2023-04-26 15:05 | PC.NURSE ---
spoke w jayme landaverde as pt request addt'l med for generalized shooting pain all over.
--- NOTE | 2023-04-26 15:11 | MHC.CM.ED ---
Received case management consult overnight. Patient came to the ER due to right hip patient. Patient was at [facility] from 04/01-04/22. Patient was supposed to d/c home with VNA. Physical therapy eval is pending. Met with patient in regards to discharge planning. Patient lives alone and ambulates with a cane/walker. PCP verified. Patient denies receiving any Covid vaccines. Copy of HCP obtained from [facility]. List of facilities provided to patient from [facility]. Patient has been asked to go over list to provide 2-3 choices. Referral broadcasted at this time to see what beds are available. Continue to monitor for d/c needs.
--- NOTE | 2023-04-26 15:51 | PC.NURSE ---
pt was sleeping- awake- requesting prn.
[2023-04-26] MEDS: Ibuprofen 600 MG TABLET PO (15:55)
--- NOTE | 2023-04-26 16:00 | MHC.EDTECH ---
This pct assumed care of pt at 1500 ,vitals taken ,pt had ice cream for snack ,400 ml urine empty .
--- NOTE | 2023-04-26 16:04 | PC.NURSE ---
readjusted. drinking po fluids. given another pillow. medicated per pt request for generalized pain.
--- NOTE | 2023-04-26 17:54 | PC.NURSE ---
repositioned back in bed after dinner. ate well.
--- NOTE | 2023-04-26 18:45 | MHC.EDTECH ---
Patient ate 100 5 of dinner ,drank 480 ml shereen marline ,After dinner ,pt was assisted to walk to bathroom ,void ,this pct offer pt to wash up ,but Patient refused ,back to bed ,alarm on bed and call flores within pt reach .
--- NOTE | 2023-04-26 21:03 | MHC.EDTECH ---
PT VITALS TAKEN ,PT WOKE UP WHILE I'M CHECKING VITALS ,AND ASKED FOR PAIN MEDS ,SHARMILA NGUYEN AWARE .
[2023-04-26] MEDS: traZODone HCL 50 MG TABLET 25 MG PO (21:16)
--- NOTE | 2023-04-26 21:24 | PC.NURSE ---
Pt medicated per aug. Pt requested and given drink. Plan of care ongoing.
[2023-04-27] MEDS: Omeprazole 20 MG CAPSULE.DR PO (06:34)
[2023-04-27] MEDS: Acetaminophen 325 MG TABLET 650 MG PO ×3 (06:36→21:35)
--- NOTE | 2023-04-27 06:38 | PC.NURSE ---
Pt medicated per aug. Pt requested and given prn meds. plan of care ongoing.
[2023-04-27 06:44] VITALS: BP 123/82; PULSE 99; RESP 16; O2SAT 96
[2023-04-27 08:08] LABS: Glucose, Whole Blood 259 mg/dL (60-115)
[2023-04-27] MEDS: DULoxetine HCl 30 MG CAPSULE.DR 90 MG PO (09:37)
[2023-04-27] MEDS: Atorvastatin Calcium 20 MG TABLET PO (09:38)
[2023-04-27] MEDS: Aspirin Enteric Coated 81 MG TABLET.DR PO (09:38)
[2023-04-27] MEDS: Sennosides 8.6 MG TABLET PO ×2 (09:39→20:38)
[2023-04-27] MEDS: Insulin Glargine,Hum.rec.anlog 100 UNIT/ML 10 ML VIAL 45 UNIT SUBCUT ×2 (09:40→20:38)
[2023-04-27] MEDS: Fludrocortisone Acetate 0.1 MG TABLET PO (10:20)
[2023-04-27] MEDS: Gabapentin 100 MG CAPSULE PO ×2 (10:20→18:30)
[2023-04-27] MEDS: oxyCODONE HCl Immed Release 5 MG TABLET PO ×2 (10:22→18:29)
--- NOTE | 2023-04-27 10:43 | PC.NURSE ---
assumed care of pt at 0700. pt a&o, calm, and cooperative. diet changed in pt's chart to diabetic diet. AM poc 259, charted in worklist. medicated per aug. pt reporting lower back pain and foot pain. medicated with prn per aug. pt was asked about his maple/maple syrup allergy listed in pt chart before given breakfast. pt sts he does not have a maple allergy and became frustrated with t/w. pt ate breakfast, washed up by tech. pt refused getting up to recliner. sts he wants to sleep. lights dimmed, pt resting quietly in hospital bed. rr even/unlabored. plan of care ongoing.
[2023-04-27] MEDS: Ibuprofen 600 MG TABLET PO ×2 (11:31→19:52)
--- NOTE | 2023-04-27 11:35 | PC.NURSE ---
pt sts no pain relief with oxycodone. pt given prn motrin per aug. pt rates lower back pain 03/18.
[2023-04-27 12:03] LABS: Glucose, Whole Blood 269 mg/dL (60-115)
--- NOTE | 2023-04-27 12:28 | PC.NURSE ---
pt given lantus per aug at 0940. pt lunch poc 269. AXEL Woody notified and putting in one time dose of insulin.
--- NOTE | 2023-04-27 13:02 | PC.NURSE ---
pt medicated with prn med for pain per mar.
--- NOTE | 2023-04-27 13:38 | PC.NURSE ---
no order in from Annalise for pt insulin. tigered Annalise as reminder for one time dose for pt blood sugar. wctm.
[2023-04-27 13:56] VITALS: BP 117/70; PULSE 88; RESP 16; TEMP 36; O2SAT 95
--- NOTE | 2023-04-27 15:16 | MHC.EDTECH ---
1:1 assist transfer from bed to recliner. Help set television and made patient comfortable.
[2023-04-27 15:30] LABS: Glucose, Whole Blood 224 mg/dL (60-115)
--- NOTE | 2023-04-27 16:24 | MHC.EDTECH ---
Brought patient a variety of snacks: no sugar applesauce and pudding, pitcher of ice water, shereen marline, chicken salad sandwich, crackers and peanut butter.
[2023-04-27] MEDS: Insulin Lispro 100 UNIT/ML 3 ML VIAL SUBCUT (17:16)
--- NOTE | 2023-04-27 18:35 | PC.NURSE ---
Addendum entered by Elba Almaguer RN 04/27/23 19:14: bed alarm on. Original Note: pt back to bed from recliner. medicated per mar for pain.
[2023-04-27 19:06] LABS: Glucose, Whole Blood 169 mg/dL (60-115)
[2023-04-27] MEDS: traZODone HCL 50 MG TABLET 25 MG PO (20:38)
--- NOTE | 2023-04-27 20:49 | PC.NURSE ---
per rounding head to toe assessment is done. IV site is intact #20g RAC, lung is clear, BS active LBM 04/27/23, abd is soft. pt was agitated by pain 03/18 on his back. previous nurse provided oxycodone per aug. this nurse provided Ibuprofen 600 mg per AUG, and schedule meds with prn. will cont. to monitor any changes.
[2023-04-27 22:00] VITALS: BP 125/78; PULSE 88; RESP 16; TEMP 36.3; O2SAT 95
[2023-04-28] MEDS: oxyCODONE HCl Immed Release 5 MG TABLET 10 MG PO (05:59)
[2023-04-28 06:00] VITALS: BP 131/78; PULSE 95; RESP 18; TEMP 36.3; O2SAT 96
[2023-04-28] MEDS: Omeprazole 20 MG CAPSULE.DR PO (06:00)
[2023-04-28] MEDS: Insulin Glargine,Hum.rec.anlog 100 UNIT/ML 10 ML VIAL 45 UNIT SUBCUT ×2 (08:19→19:32)
[2023-04-28] MEDS: DULoxetine HCl 30 MG CAPSULE.DR 90 MG PO (08:20)
[2023-04-28] MEDS: Atorvastatin Calcium 20 MG TABLET PO (08:20)
[2023-04-28] MEDS: Gabapentin 100 MG CAPSULE PO ×2 (08:20→19:29)
[2023-04-28] MEDS: oxyCODONE HCl Immed Release 5 MG TABLET PO ×3 (08:20→20:44)
[2023-04-28] MEDS: Aspirin Enteric Coated 81 MG TABLET.DR PO (08:20)
[2023-04-28] MEDS: Sennosides 8.6 MG TABLET PO ×2 (08:21→19:27)
[2023-04-28] MEDS: Acetaminophen 325 MG TABLET 650 MG PO ×2 (10:56→17:26)
--- NOTE | 2023-04-28 10:56 | PC.NURSE ---
utilized PRN tylenol, continues to rest quietly in room with even and unlabored respirations
[2023-04-28 13:32] VITALS: BP 103/55; PULSE 95; RESP 15; TEMP 36.4; O2SAT 97
[2023-04-28] MEDS: Ibuprofen 600 MG TABLET PO ×2 (15:15→23:44)
--- NOTE | 2023-04-28 15:15 | PC.NURSE ---
patient utilized PRN motrin at this time. also provided with more crackers and shereen marline, no other complaints or signs of distress at this time. call flores within reach.
--- NOTE | 2023-04-28 16:15 | MHC.CM.PN ---
PT REFUSING TO WORK WITH PHYSICAL THERAPY TODAY THEY WERE UNABLE TO MAKE A SECOND ATTEMPT BUT WILL TRY AGAIN TOMORROW
[2023-04-28 19:27] LABS: Glucose, Whole Blood 175 mg/dL (60-115)
[2023-04-28] MEDS: traZODone HCL 50 MG TABLET 25 MG PO (19:28)
[2023-04-28 21:37] VITALS: BP 106/75; PULSE 92; TEMP 37.1; O2SAT 97
--- NOTE | 2023-04-29 03:24 | PC.NURSE ---
Addendum entered by Nery Deluna RN 04/29/23 03:42: PT has a peripheral IV on the right antecub g 20, area benign and asymptomatic. Original Note: Pt seen on bed alert and oriented, c/o right leg and low back pain, medicated, slept at intervals, POC at bedtime= 175, lantus given, tolerated snacks, bouts of pain presented, refused to be repositioned, all prn pain med used, pt was advised, slept most of the night.
[2023-04-29 05:45] VITALS: BP 102/61; PULSE 99; RESP 18; TEMP 36.1; O2SAT 98
[2023-04-29] MEDS: Omeprazole 20 MG CAPSULE.DR PO (05:48)
[2023-04-29] MEDS: oxyCODONE HCl Immed Release 5 MG TABLET PO ×3 (07:18→21:47)
[2023-04-29 07:52] LABS: Glucose, Whole Blood 68 mg/dL (60-115)
[2023-04-29] MEDS: Gabapentin 100 MG CAPSULE PO ×4 (08:52→21:46)
[2023-04-29] MEDS: Sennosides 8.6 MG TABLET PO ×2 (08:52→21:45)
[2023-04-29] MEDS: Acetaminophen 325 MG TABLET 650 MG PO ×2 (08:52→17:01)
[2023-04-29] MEDS: Aspirin Enteric Coated 81 MG TABLET.DR PO (08:52)
[2023-04-29] MEDS: Atorvastatin Calcium 20 MG TABLET PO (08:52)
[2023-04-29] MEDS: Ibuprofen 600 MG TABLET PO ×2 (08:52→18:32)
[2023-04-29] MEDS: Insulin Glargine,Hum.rec.anlog 100 UNIT/ML 10 ML VIAL 45 UNIT SUBCUT ×2 (08:53→21:45)
[2023-04-29] MEDS: DULoxetine HCl 30 MG CAPSULE.DR 90 MG PO (08:53)
[2023-04-29] MEDS: Fludrocortisone Acetate 0.1 MG TABLET PO (09:51)
--- NOTE | 2023-04-29 11:36 | MHC.CM.ED ---
Addendum entered by Cele Cazares 04/29/23 15:11: Patient has [employer] Medicare [employer]vantage Plan and [employer]. [facility] [place] been asked to see patient if patient would qualify to convert to [facility] Standard. Addendum entered by Cele Cazares 04/29/23 11:47: Patient is a level 3 sex offender. Original Note: Patient remains in ER overflow. Physical therapy eval completed. Short term rehab is recommended. No bed offers yet. Referral broadcasted within 50 miles in [facility]. Continue to monitor for d/c needs.
[2023-04-29 11:43] LABS: Glucose, Whole Blood 149 mg/dL (60-115)
[2023-04-29 14:00] VITALS: BP 141/80; PULSE 101; RESP 18; TEMP 36.9; O2SAT 99
--- NOTE | 2023-04-29 15:58 | MHC.EDTECH ---
Put pillow cover on pillow for patient and repositioned patient onto left side placing pillow to help with back pain.
--- NOTE | 2023-04-29 16:04 | PC.NURSE ---
Addendum entered by Valerie Ann RN 04/29/23 16:08: Can Physical therapy call Mr. Vagras if he refuses again. They are trying to get him some help for after STR but has to have PT to get STR. Original Note:
[2023-04-29 16:36] LABS: Glucose, Whole Blood 152 mg/dL (60-115)
[2023-04-29] MEDS: Insulin Lispro 100 UNIT/ML 3 ML VIAL SUBCUT ×2 (17:01→21:53)
[2023-04-29] MEDS: cefuroxime axetiL 250 MG TABLET PO (18:32)
[2023-04-29] MEDS: traZODone HCL 50 MG TABLET 25 MG PO (21:45)
[2023-04-29 21:50] VITALS: BP 132/78; PULSE 85; RESP 18; TEMP 36.8; O2SAT 97
[2023-04-29 21:51] LABS: Glucose, Whole Blood 163 mg/dL (60-115)
--- NOTE | 2023-04-30 01:27 | PC.NURSE ---
Assumed care at 0045. Patient in bed sleeping. Respirations even. No signs of distress. Bed alarm on. Call flores in reach.
[2023-04-30] MEDS: Omeprazole 20 MG CAPSULE.DR PO (05:27)
[2023-04-30] MEDS: cefuroxime axetiL 250 MG TABLET PO (05:27)
[2023-04-30] MEDS: Acetaminophen 325 MG TABLET 650 MG PO (05:29)
[2023-04-30 05:47] VITALS: BP 106/70; PULSE 83; RESP 19; TEMP 36.5; O2SAT 98
[2023-04-30 06:32] VITALS: RESP 16
[2023-04-30 07:29] LABS: Glucose, Whole Blood 61 mg/dL (60-115)
[2023-04-30] MEDS: Sennosides 8.6 MG TABLET PO (08:31)
[2023-04-30] MEDS: oxyCODONE HCl Immed Release 5 MG TABLET PO (08:31)
[2023-04-30] MEDS: DULoxetine HCl 30 MG CAPSULE.DR 90 MG PO (08:31)
[2023-04-30] MEDS: Fludrocortisone Acetate 0.1 MG TABLET PO (08:32)
[2023-04-30] MEDS: Aspirin Enteric Coated 81 MG TABLET.DR PO (08:32)
[2023-04-30] MEDS: Atorvastatin Calcium 20 MG TABLET PO (08:32)
[2023-04-30] MEDS: Insulin Glargine,Hum.rec.anlog 100 UNIT/ML 10 ML VIAL 45 UNIT SUBCUT (08:33)
[2023-04-30] MEDS: Gabapentin 100 MG CAPSULE PO (09:59)
[2023-04-30] MEDS: Ibuprofen 600 MG TABLET PO (09:59)
--- NOTE | 2023-04-30 11:17 | PC.NURSE ---
Pt continously c/o pain regardless of pain medication. AXEL masters at bedside for assessment.
[2023-04-30] MEDS: Insulin Lispro 100 UNIT/ML 3 ML VIAL SUBCUT (11:37)
[2023-04-30 11:44] LABS: Glucose, Whole Blood 178 mg/dL (60-115)
--- NOTE | 2023-04-30 12:04 | PC.NURSE ---
Pt ambulatory with walker to bathroom
--- NOTE | 2023-04-30 13:21 | PC.NURSE ---
Pt discussed plan of care with CM. per CM pt to be picked up at front door. taken to front door with staff with all belongings.
--- NOTE | 2023-04-30 13:29 | MHC.CM.ED ---
Patient remains in ER overflow. Patient has been difficult to place due to being homeless, being a level 3 sex offender and not having [facility] Standard, only [employer] Net. Repeat physical therapy note completed. Patient was able to independently ambulate 45 feet. Short term rehab is no longer recommended. [facility] in [facility] would be willing to offer a bed with verification that patient would qualify [facility]: bank statements, etc. Met with patient to discuss discharge planning. Patient would be agreeable to [facility]. Patient states he does not own a car or any property. Patient believes his monthly social security is under $2000 per month. When asked about assets patient stated I have $1.5 million in the bank T/W verified with patient the amount. Patient confirmed he has $1 million in [employer] and $500,000 in another bank. T/W questioned why patient was homeless if he had money in the bank. Patient stated because I haven't been able to get to the bank to get my money. T/W explained [facility] would not be approved if patient had more than $2,000 in the bank and patient would need to privately pay. Patient is not interested in privately paying and feels that [facility] should pay for him to go to a facility. Patient aware Lyft will be arranged so he can go to [facility] to obtain money for a motel. Patient stated Thanks for nothing but proceeded to get dressed for the discharge. Pao DOLL and Aimee BAILEY aware. Lyft booked. Shanthi Medel CM director aware. Continue to monitor for d/c needs.
== END 2023-04-30 14:15 | disposition home or self-care (01) ==
PROVIDERS: Nurse Practitioner Family; Physician Assistant Medical; Emergency Provider Emergency Medicine; PCP Internal Medicine
DX: S09.90XA Unspecified injury of head, initial encounter (principal); R07.89 Other chest pain; R55 Syncope and collapse; R26.81 Unsteadiness on feet; R00.0 Tachycardia, unspecified; W01.10XA Fall on same level from slipping, tripping and stumbling with subsequent striking against unspecified object, initial encounter; Y93.9 Activity, unspecified; Y92.9 Unspecified place or not applicable; Y99.9 Unspecified external cause status; Z11.52 Encounter for screening for COVID-19; Z20.822 Contact with and (suspected) exposure to COVID-19; Z79.899 Other long term (current) drug therapy
CPT/HCPCS: 36415; 71046; 71275; 73502; 80048; 80076; 80307; 81001; 82947; 83735; 84484; 85025; 85379; 87086; 87635; 93005; 96374; 96375; 97116; 97162; 97530; 99285; J1885; J2270; Q9967

== ENCOUNTER 2023-05-01 10:08 | Emergency (ER) | payer OTHER, SELFPAY ==
--- NOTE | 2023-05-01 10:11 | ED_ITS ---
HPI - General Adult General Chief complaint: Extremity Problem Stated complaint: R HIP/BACK PAIN, H/O FX 2 MONTHS AGO PER EMS Time Seen by Provider: 05/01/23 10:11 Source: patient and EMS Mode of arrival: EMS Limitations: no limitations History of Present Illness HPI narrative: Patient is a 73 year old assigned male at with a history of right hip fracture and diabetes presenting to the emergency department today with chronic right hip pain and homelessness. Patient states that 2 months ago he broke his right hip and has been in constant pain since. Patient states that he does not want to be discharged because he has nowhere to go. Patient denies any dizziness, lightheadedness, abdominal pain, nausea, vomiting, fever, chills, blurry vision, double vision, loss of vision, chest pain, difficulty breathing, shortness of breath, back pain, night sweats, pain with urination, increased urinary frequency, increased urinary urgency, blood in his urine or stool, syncope or a near syncopal episode, recent trauma or falls, bowel incontinence, bladder incontinence, bowel retention, bladder retention, or any other complaints at this time. Onset (ago): month(s) (2) Location: right (hip) Radiation: non-radiation Severity: mild Severity scale (1-10): 4 Quality: aching and dull Pain Consistency: constant Relieving factors: none Exacerbating factors: none Associated symptoms: denies other symptoms Treatments prior to arrival: none Related Data Home Medications Medication Instructions Recorded Confirmed acetaminophen 325 mg tablet 650 mg PO Q6H PRN Pain 04/26/23 04/26/23 (Tylenol) aspirin 81 mg tablet,delayed See Rx Instructions .Route .COMPLEX 04/26/23 04/26/23 release aspirin 81 mg tablet,delayed See Rx Instructions .Route .COMPLEX 04/26/23 04/26/23 release atorvastatin 20 mg tablet 20 mg PO DAILY 04/26/23 04/26/23 duloxetine 30 mg capsule,delayed 90 mg PO DAILY 04/26/23 04/26/23 release fludrocortisone 0.1 mg tablet 0.1 mg PO DAILY 04/26/23 04/26/23 gabapentin 100 mg capsule 100 mg PO BID 04/26/23 04/26/23 insulin glargine 100 unit/mL (3 45 unit subcut BID 04/26/23 04/26/23 mL) subcutaneous pen (Lantus Solostar U-100 Insulin) oxycodone 5 mg tablet 5 mg PO TID PRN Pain 04/26/23 04/26/23 pantoprazole 20 mg tablet,delayed 20 mg PO DAILY@0630 04/26/23 04/26/23 release sennosides 8.6 mg tablet (senna) 8.6 mg PO BID 04/26/23 04/26/23 trazodone 50 mg tablet 25 mg PO BEDTIME 04/26/23 04/26/23 Allergies Allergy/AdvReac Type Severity Reaction Status Date / Time penicillin V Allergy Unknown Unknown Verified 05/01/23 10:27 Penicillins [PCN] Allergy Unknown SWELLING Verified 05/01/23 10:27 Sulfa (Sulfonamide Allergy Unknown Unknown Verified 05/01/23 10:27 Antibiotics) sulfamethoxazole Allergy Unknown DIFFICULTY Verified 05/01/23 10:27 [From BACTRIM] BREATHING trimethoprim [From BACTRIM] Allergy Unknown DIFFICULTY Verified 05/01/23 10:27 BREATHING Maple Flavor Allergy Unknown Unknown Uncoded 05/01/23 10:27 MAPLE SYRUP Allergy Unknown UNKNOWN Uncoded 05/01/23 10:27 Review of Systems 2 Constitutional: Constitutional: Reports no additional constitutional complaints, Denies chills, Denies fever(s) and Denies night sweats Eyes: Eyes: Reports no additional eye complaints, Denies blurry vision, Denies change in vision, Denies diplopia, Denies eye discharge, Denies loss of vision and Denies eye pain ENT: Denies dizziness Cardiovascular: Cardiovascular: Reports no additional cardiovascular complaints, Denies chest pain, Denies lightheadedness, Denies Loss of Consciousness and Denies dyspnea Respiratory: Respiratory: Reports no additional respiratory complaints and Denies dyspnea Gastrointestinal: Gastrointestinal: Reports no additional gastrointestinal complaints, Denies abdominal pain, Denies melena, Denies hematochezia, Denies change in bowel habits and Denies change in stool character Genitourinary: Genitourinary: Reports no additional male genitourinary complaints, Denies hematuria, Denies oliguria, Denies difficulty urinating, Denies dysuria, Denies urinary frequency, Denies urinary hesitancy, Denies urinary incontinence and Denies urinary urgency Musculoskeletal: Musculoskeletal: Reports no additional musculoskeletal complaints, Denies numbness and Denies tingling Comments: Right hip pain Neurologic: Denies dizziness, Denies loss of vision, Denies numbness and Denies tingling Psychiatric: Psychiatric: Reports no additional psychiatric complaints Endocrine: Endocrine: Reports no additional endocrine complaints Hematologic/Lymphatic: Hematologic/Lymphatic: Reports no additional hematologic/lymphatic complaints Allergic/Immunologic: Allergic/Immunologic: Reports no additional allergic/immunologic complaints [facility] Past Medical History Attestation statement: The following information was validated with the patient. Source: old records reviewed and nursing notes reviewed Medical History Type 2 diabetes mellitus Hip fracture Social History Alcohol intake: never Advance Directives: Yes Advance Directives on File: Yes Advance Directives Date on File: 04/26/23 Physical Exam ED Vital Signs: Vital Signs - 24 hr 05/01/23 10:19 Temperature 98.3 F Pulse Rate 93 Respiratory Rate 18 Blood Pressure 114/72 Pulse Oximetry 97 Oxygen Delivery Method Room Air BMI result Body Mass Index 30.5 Const General: cooperative, no acute distress, alert and awake Nutritional Appearance: well nourished Orientation/consciousness: patient oriented x3 Limitations: no limitations HENMT Head: Yes normal to inspection and Yes atraumatic Ears: hearing grossly normal bilaterally and external ears normal General nose exam: Normal external nose present, no nasal discharge noted and no epistaxis Face and sinus: Yes normal facial exam, No abrasion and No laceration Mouth: Normal oral and palatal mucosa present, no drooling and no muffled voice Teeth and gingiva: poor dentition Eyes General: appearance normal, both eyes and all related structures Periorbital: periorbital findings normal Eyelids: Yes eyelids normal Conjunctivae: conjunctivae normal Pupils: Equal, round and reactive pupils present EOM: EOMs intact bilaterally Neck Neck: Yes normal visual inspection, Yes full ROM and Yes no lymphadenopathy Chest Chest palpation & inspection: normal inspection of the chest Resp Effort & Inspection: normal respiratory effort and able to speak in complete sentences GI Inspection: Yes normal to inspection Neuro General: patient oriented x3 and moves all extremities Cranial nerves: Yes Equal, round and reactive pupils present Cognition (Neuro): normal cognition Motor exam (neuro): 5/5 motor strength present throughout Sensory Exam: Normal double simultaneous stimulation for sensation Coordination: [id number] test normal Extrem General: Yes normal to inspection, Yes full ROM and Yes capillary refill normal Psych Appearance: grossly normal Mental Status: mental status grossly normal Affect: normal affect Attitude: cooperative Thought process: Normal thought process present Thought content: Normal thought content present Insight: Good insight present (Psych) Medications Administered Discontinued Medications Generic Name Dose Route Start Last Admin Trade Name Giana PRN Reason Stop Dose Admin Oxycodone HCl 10 mg 05/01/23 10:17 05/01/23 10:28 Oxycodone Hcl Immed Release 5 Mg Tablet PO 05/01/23 10:18 10 mg ONCE ONE Administration Medical Decision Making Medical Decision Making MDM Narrative: Patient is a 73 year old assigned male at with a history of right hip fracture and DM presenting to the emergency department today with chronic right hip pain. Patient's physical exam was unremarkable. Patient's blood work was unremarkable. Patient's urine is pending at this time. I explained my physical exam findings as well as all test results to the patient. I answered all questions asked by the patient. Patient is requesting to be evaluated by physical therapy for short term rehab placement. PT eval + treat order placed as well as diet order and case management consult. Differential Diagnosis Differential Diagnoses: The differential diagnosis associated with the presentation includes Chronic hip pain Homelessness Admission/Observation Consideration of admission/observation: Escalation of care including admission/observation considered Patient would have been admitted to the hospital had his work up had any findings where hospital admission was appropriate and his clinical presentation warranted hospital admission. Lab Data MDM Lab Attestation statement: I reviewed the patient's lab results. My interpretation of these studies and their corresponding values is that they are grossly normal. 05/01/23 10:31 05/01/23 10:31 Labs: Lab Results 05/01/23 Range/Units 10:31 WBC 7.2 (4.8-10.8) X10*3/uL RBC 4.46 L (4.60-5.80) X10*6/uL Hgb 13.0 L (14.0-18.0) g/dl Hct 38.4 L (42.0-52.0) % MCV 86.1 (80.0-98.0) fL MCH 29.1 (27.0-33.0) pg MCHC 33.9 (31.0-36.0) g/dl RDW 13.8 (11.0-16.0) % Plt Count 404 H D (160-400) X10*3/uL MPV 9.5 (9.4-12.4) fL Immature Gran % (Auto) 0.1 (0.0-0.4) % Neut % (Auto) 71.8 (45-73) % Lymph % (Auto) 14.8 L (20-40) % [place] % (Auto) 11.7 H (2-11) % Eos % (Auto) 1.2 (0-4) % Baso % (Auto) 0.4 (0-2) % Lymph # (Auto) 1.1 L (1.2-4.9) X10*3/uL [place] # (Auto) 0.8 (0.1-1.2) X10*3/uL Eos # (Auto) 0.1 (0.0-0.4) X10*3/uL Baso # (Auto) 0.0 (0.0-0.2) X10*3/uL Abs Immat Gran (auto) 0.01 (0.00-0.03) X10*3/uL Absolute Neuts (auto) 5.2 (2.0-8.3) x10*3/uL Absolute Nucleated RBC 0.000 (0.0-0.012) X10*3/uL Nucleated RBC % (auto) 0.0 (0.0-0.2) /100WBC Sodium 136 (135-145) mmol/L Potassium 4.2 (3.3-5.1) mmol/L Chloride 103 (96-108) mmol/L Carbon Dioxide 21 L (22-29) mmol/L Anion Gap 16 (12-20) BUN 13 (9-16) mg/dL Creatinine 0.87 (0.5-1.4) mg/dL Estim Creat Clear Calc 97.6 Estimated GFR > 60 Random Glucose 160 H (60-115) mg/dL Calcium 9.2 D (8.4-10.2) mg/dL Total Bilirubin 0.3 (0.0-1.0) mg/dL AST 16 (5-37) U/L ALT 15 (0-40) U/L Alkaline Phosphatase 166 H (39-117) U/L Total Protein 7.0 (6.5-8.0) g/dL Albumin 3.5 (3.5-5.0) g/dL COVID-19 (JULIANNA) Negative (Negative) COVID-19 Clin Com See Note Independent Historian Clinical information obtained from an independent historian. History obtained from or confirmed by: EMS (EMS provided additional history and confirmed the history provided by the patient.) Chronic Conditions Patient?s care impacted by: Diabetes Discharge Plan Discharge Clinical Impression: Chronic hip pain, Homeless Patient Disposition: Still a Patient Prescriptions: No Action atorvastatin 20 mg tablet 20 mg PO DAILY trazodone 50 mg tablet 25 mg PO BEDTIME pantoprazole 20 mg tablet,delayed release (DR/EC) 20 mg PO DAILY@0630 gabapentin 100 mg capsule 100 mg PO BID oxycodone 5 mg tablet 5 mg PO TID PRN (Reason: Pain) duloxetine 30 mg capsule,delayed release(DR/EC) 90 mg PO DAILY fludrocortisone 0.1 mg tablet 0.1 mg PO DAILY insulin glargine [Lantus Solostar U-100 Insulin] 100 unit/mL (3 mL) insulin pen 45 unit subcut BID sennosides [senna] 8.6 mg Tablet 8.6 mg PO BID acetaminophen [Tylenol] 325 mg Tablet 650 mg PO Q6H PRN (Reason: Pain) aspirin 81 mg Tablet,Delayed Release (Dr/Ec) See Rx Instructions .ROUTE .COMPLEX Rx Instructions: 81 mg orally BID ;END DATE: 05/04/23 aspirin 81 mg Tablet,Delayed Release (Dr/Ec) See Rx Instructions .ROUTE .COMPLEX Rx Instructions: 81 mg orally daily ;START DATE: 05/05/23
[2023-05-01 10:19] VITALS: BP 114/72; PULSE 93; RESP 18; TEMP 36.8; O2SAT 97; BMI 30.5
[2023-05-01] MEDS: oxyCODONE HCl Immed Release 5 MG TABLET 10 MG PO ×2 (10:28→16:19)
[2023-05-01 10:36] LABS: MANUAL DIFF FLAG NO
[2023-05-01 10:37] LABS: Basophils Percent Auto 0.4 % (0-2); Eosinophils Absolute Auto 0.1 X10*3/uL (0.0-0.4); Eosinophils Percent Auto 1.2 % (0-4); Hematocrit 38.4 % (42.0-52.0); Imm Gran Abs Auto 0.01 X10*3/uL (0.00-0.03); Imm Gran Pct Auto 0.1 % (0.0-0.4); Lymphocytes Absolute Auto 1.1 X10*3/uL (1.2-4.9); Lymphocytes Percent Auto 14.8 % (20-40); Mean Corpuscular HGB Conc 33.9 g/dl (31.0-36.0); Mean Corpuscular Hemoglobin 29.1 pg (27.0-33.0); Mean Corpuscular Volume 86.1 fL (80.0-98.0); Mean Platelet Volume 9.5 fL (9.4-12.4); Monocytes Absolute Auto 0.8 X10*3/uL (0.1-1.2); Monocytes Percent Auto 11.7 % (2-11); Neutrophils Absolute Auto 5.2 x10*3/uL (2.0-8.3); Neutrophils Percent Auto 71.8 % (45-73); Platelet Count 404 X10*3/uL (160-400); Red Blood Count 4.46 X10*6/uL (4.60-5.80); Red Cell Distribution Width 13.8 % (11.0-16.0); White Blood Count 7.2 X10*3/uL (4.8-10.8)
[2023-05-01 10:53] LABS: Alanine Aminotransferase 15 U/L (0-40); Albumin Level 3.5 g/dL (3.5-5.0); Alkaline Phosphatase 166 U/L (39-117); Anion Gap 16 (12-20); Aspartate Amino Transferase 16 U/L (5-37); Bilirubin Total 0.3 mg/dL (0.0-1.0); Blood Urea Nitrogen 13 mg/dL (9-16); COVID-19 Test Negative (Negative); Calcium 9.2 mg/dL (8.4-10.2); Carbon Dioxide 21 mmol/L (22-29); Chloride 103 mmol/L (96-108); Creatinine Clr Calc Pharmacy 97.6; Estimated Glomerular Filt Rate > 60; Glucose Random 160 mg/dL (60-115); IDNOW Serial# BCCEAD1C; Potassium 4.2 mmol/L (3.3-5.1); Sodium 136 mmol/L (135-145)
--- NOTE | 2023-05-01 11:35 | PC.NURSE ---
reports given. aox4. calm, coop. no respiratory distress. +CMS. talking well
[2023-05-01 12:00] VITALS: BP 133/76; PULSE 95; RESP 18; TEMP 36.6; O2SAT 97
--- NOTE | 2023-05-01 12:16 | MHC.EDTECH ---
This pct and the nurse(bashir) went through patients belongings and noticed a large sum of money when counted I AND THE NURSE COUNTED $[id number] reported to the charge nurse, patient is alert and oriented and chose to keep money on him RN Aware
--- NOTE | 2023-05-01 12:22 | PC.NURSE ---
pt has $4,995 in envelope- counted w karoline toro at bedside- pt declined on multiple offers for security to secure it. pt has money on his person per his request
[2023-05-01] MEDS: Ketorolac Tromethamine 15 MG/ML VIAL IM (12:29)
[2023-05-01 12:30] VITALS: RESP 16
--- NOTE | 2023-05-01 12:37 | PC.NURSE ---
called kitchen for pt tray for lunchtime. given toradol for 10/10 chronic pain per pt report
--- NOTE | 2023-05-01 13:12 | PC.NURSE ---
pt resting in bed sitting up well eating lunch w/o distress or signs of pain. breathing well
--- NOTE | 2023-05-01 14:21 | MHC.CM.PN ---
Patient in ER with c/o hip pain. He requests STR. A PT eval has been ordered for placement. PT is not available today due to the holiday. Patient will need a 3 night inpatient stay, to qualify for STR.
[2023-05-01 14:44] VITALS: BP 147/87; PULSE 95; RESP 18; TEMP 36.8; O2SAT 96
--- NOTE | 2023-05-01 14:45 | PC.NURSE ---
pt enevlope of hi in pocket- witnessed by rn and karoline toro at bedside. report given to overflow rn. reports mild improvement w pain meds. no resp distress. aox4. calm, coop.
--- NOTE | 2023-05-01 15:00 | PC.NURSE ---
brought to overflow by karoline toro
--- NOTE | 2023-05-01 19:04 | PC.NURSE ---
Addendum entered by Jinny Montejo RN 05/02/23 00:58: UA results reported to the Provider. Addendum entered by Jinny Montejo RN 05/02/23 00:56: [id number] Provider was notified that pt's home meds was not resumed yet which includes pain meds like gabapentin and oxy. Pt is diabetic. taking Lantus at home but nothing was ordered. Blood sugar was checked, its 155 just now. Addendum entered by Jinny Montejo RN 05/01/23 22:26: 2115Pt give PO morphine 15mg. Pain remains uncontrolled. Provider notified. awaiting for further pain management. Original Note: Acquired care at 1930. Pt was agitated and calling for the RN. coimplaining for pain. and also looking for his own walker. Belonging list doesnt show he has one. Security was called to explain to the pt that he can use hospital walker. Pt calmed down. ED provider also notified via tiger text that pt has no meds in the MAR to give. we are utilizing ice packs as our only options.
[2023-05-01] MEDS: Lidocaine 4 % Patch ADH..PATCH 1 PATCH TRANSDERMA (19:23)
[2023-05-01] MEDS: Acetaminophen 325 MG TABLET 650 MG PO (19:23)
[2023-05-01 19:58] VITALS: BP 147/74; PULSE 89; RESP 14; TEMP 36.4; O2SAT 98
[2023-05-01] MEDS: Morphine Sulfate Immed Release 15 MG TABLET PO (21:20)
[2023-05-01 22:06] LABS: Appearance Urine Clear; Color Urine Yellow; Glucose Urine UA 500 mg/dL (Negative); Leukocyte Esterase Urine Moderate (2+) (Negative); Nitrite Urine Negative (Negative); PH 6.5 (5.0-9.0); UMIC TRIGGER UACC YES; Urine Blood Negative (Negative); Urine Ketones Negative (Negative); Urine Protein Negative (Neg-Trace)
[2023-05-01 22:11] LABS: Bacteria Urine None Seen (None Seen); Hyaline Casts Urine 0-2 /LPF (0-2); RBC Urine 0-2 /HPF (0-2); Squamous Epithelial Cell Urine 0-2 /HPF (0-2); UACC Culture Trigger YES; WBC Urine >50 /HPF (0-5)
[2023-05-02 01:00] VITALS: BP 137/79; PULSE 90; RESP 16; TEMP 36.5; O2SAT 96
[2023-05-02 01:03] LABS: Glucose, Whole Blood 155 mg/dL (60-115)
[2023-05-02] MEDS: Acetaminophen 325 MG TABLET 650 MG PO (01:06)
[2023-05-02 07:38] LABS: Glucose, Whole Blood 163 mg/dL (60-115)
--- NOTE | 2023-05-02 07:54 | PHA.MEDREC ---
Pharmacy Consult ? Medication Reconciliation Pharmacy has completed the medication reconciliation. Verified lantus dose with patient. no changes since last time here. pt very unpleasent, requesting pain med chad
[2023-05-02] MEDS: Aspirin Enteric Coated 81 MG TABLET.DR PO (09:56)
[2023-05-02] MEDS: Insulin Glargine,Hum.rec.anlog 100 UNIT/ML 10 ML VIAL 45 UNIT SUBCUT (09:57)
[2023-05-02] MEDS: Sennosides 8.6 MG TABLET PO (09:57)
[2023-05-02] MEDS: Fludrocortisone Acetate 0.1 MG TABLET PO (09:57)
[2023-05-02] MEDS: Gabapentin 100 MG CAPSULE PO (09:57)
[2023-05-02] MEDS: Atorvastatin Calcium 20 MG TABLET PO (09:57)
[2023-05-02] MEDS: DULoxetine HCl 30 MG CAPSULE.DR 90 MG PO (09:57)
[2023-05-02] MEDS: Lidocaine 4 % Patch ADH..PATCH 1 PATCH TRANSDERMA (10:02)
[2023-05-02 10:11] VITALS: BP 114/74; PULSE 89; O2SAT 95
[2023-05-02 11:40] LABS: Glucose, Whole Blood 184 mg/dL (60-115)
--- NOTE | 2023-05-02 13:03 | MHC.CM.ED ---
Addendum entered by Cele Cazares 05/02/23 15:15: Patient's nephew, Will, has not called back. Germania REYNA made aware and will d/c patient. 2 bus passes given to patient. Denis DOLL aware. Original Note: Received case management consult on 05/01. Patient was in [facility] ER from 04/25-04/30. Patient was inpatient at [facility] from 04/01-04/22 due to hip surgery. Their physical therapist originally recommended short term rehab. However, patient is a level 3 sex offender and homeless. Placement was unable to be found. Physical therapy was provided while patient was there and physical therapy felt he could safely d/c home. Patient was basically d/c'd to the streets. Patient came to [place] ER on 04/25 due to hip pain. Work up was negative. Physical therapy eval was originally ordered but was not able to be performed for a couple of days because patient refused eval. On 04/30, physical therapy eval was completed and short term rehab was not recommended. [facility] in [facility] was willing to offer a bed if patient provided proof that he would qualify for [employer], ie bank statements. At that time, patient disclosed to case management that he had more than $2000 in the bank and would not qualify for [employer]. Patient was d/c'd and provided a Lyft to patient's [employer] [employer] in [place]. Patient returned to [place] ER on 05/01 due to hip pain. CM met with patient in regards to discharge planning. Patient said he went to the bank and grabbed $4000 from his account. He still has this money on him. T/W explained STR is not appropriate and patient would be discharged. Patient became upset and stating You're kicking me out. Where am I supposed to go? I'm homeless! T/W reminded patient that he had money in his pocket and should find a hotel. Patient then stated his nephew, Will, is coming to visit him today and he might be able to go home with him. T/W attempted to call nephew, Will, via telephone at [phone]. Left message requesting return telephone call. Continue to monitor for d/c needs.
== END 2023-05-02 15:45 | disposition home or self-care (01) ==
PROVIDERS: Physician Assistant Medical; Emergency Provider Emergency Medicine; PCP Internal Medicine
DX: G89.29 Other chronic pain (principal); M25.551 Pain in right hip; Z59.00 Homelessness unspecified; Z11.52 Encounter for screening for COVID-19; Z79.82 Long term (current) use of aspirin; Z79.4 Long term (current) use of insulin; Z79.899 Other long term (current) drug therapy
CPT/HCPCS: 36415; 80053; 81001; 82947; 85025; 87086; 87635; 96372; 99285; J1885

== ENCOUNTER 2023-05-02 20:53 | Emergency (ER) | payer OTHER, SELFPAY ==
--- NOTE | 2023-05-02 | ECG_ITS ---
Test Reason : HYPOTENSION Blood Pressure : / mmHG Vent. Rate : 104 BPM Atrial Rate : 104 BPM P-R Int : 166 ms QRS Dur : 106 ms QT Int : 354 ms P-R-T Axes : 049 -73 063 degrees QTc Int : 465 ms Sinus tachycardia Left anterior fascicular block Intra-ventricular conduction delay Anteroseptal infarct (cited on or before 04-JAN-2016) Abnormal ECG When compared with ECG of 25-APR-2023 12:37, No significant change was found Referred By: Generic ED Physician Electronically Signed By:ISIAH PERALTA MD
--- NOTE | ~2023-05-02 | XR_ITS ---
EXAMINATION: XR HIP, RIGHT CLINICAL INFORMATION: Hip pain COMPARISON: 04/25/2023 TECHNIQUE: Two views of the right hip. AP pelvis. FINDINGS: There is redemonstration of 3 screws along the course of the right femoral neck. Hardware appears intact. Redemonstrated healing right femoral neck fracture, without significant change from prior. Alignment across the hips is anatomic with mild degenerative change bilaterally. Sacroiliac joints and pubic symphysis appear intact. No new acute fracture identified. XR/XR hip RT w PEL1V IMPRESSION: Redemonstrated healing right femoral neck fracture. No new acute findings identified.
[2023-05-02 21:09] VITALS: BP 87/65; PULSE 119; RESP 16; TEMP 36.6; O2SAT 97; BMI 28.8
[2023-05-02 22:02] VITALS: BP 109/63; PULSE 102; RESP 17; TEMP 36.8; O2SAT 97
--- NOTE | 2023-05-02 22:15 | ED.GENADULT ---
HPI - General Adult General Chief complaint: General Medical Stated complaint: hip pain, abominal pain Time Seen by Provider: 05/02/23 22:11 Source: patient Mode of arrival: EMS Limitations: no limitations History of Present Illness HPI narrative: Patient type 2 diabetic with history of hip fracture status post ORIF in 03/01 was just discharged yesterday home but unable to get to the apartment patient does have hi is to go to show requesting to spend the night here 0 1 to get placed by the care team Related Data Home Medications Medication Instructions Recorded Confirmed acetaminophen 325 mg tablet 650 mg PO Q6H PRN Pain 04/26/23 05/02/23 (Tylenol) aspirin 81 mg tablet,delayed See Rx Instructions .Route .COMPLEX 04/26/23 05/02/23 release aspirin 81 mg tablet,delayed See Rx Instructions .Route .COMPLEX 04/26/23 05/02/23 release atorvastatin 20 mg tablet 20 mg PO DAILY 04/26/23 05/02/23 duloxetine 30 mg capsule,delayed 90 mg PO DAILY 04/26/23 05/02/23 release fludrocortisone 0.1 mg tablet 0.1 mg PO DAILY 04/26/23 05/02/23 gabapentin 100 mg capsule 100 mg PO BID 04/26/23 05/02/23 insulin glargine 100 unit/mL (3 45 unit subcut BID 04/26/23 05/02/23 mL) subcutaneous pen (Lantus Solostar U-100 Insulin) oxycodone 5 mg tablet 5 mg PO TID PRN Pain 04/26/23 05/02/23 pantoprazole 20 mg tablet,delayed 20 mg PO DAILY@0630 04/26/23 05/02/23 release sennosides 8.6 mg tablet (senna) 8.6 mg PO BID 04/26/23 05/02/23 trazodone 50 mg tablet 25 mg PO BEDTIME 04/26/23 05/02/23 Previous Rx's Medication Instructions Recorded cefuroxime axetil 250 mg tablet 250 mg PO BID 7 days #14 tabs 05/02/23 Allergies Allergy/AdvReac Type Severity Reaction Status Date / Time penicillin V Allergy Unknown Unknown Verified 05/01/23 10:27 Penicillins [PCN] Allergy Unknown SWELLING Verified 05/01/23 10:27 Sulfa (Sulfonamide Allergy Unknown Unknown Verified 05/01/23 10:27 Antibiotics) sulfamethoxazole Allergy Unknown DIFFICULTY Verified 05/01/23 10:27 [From BACTRIM] BREATHING trimethoprim [From BACTRIM] Allergy Unknown DIFFICULTY Verified 05/01/23 10:27 BREATHING Maple Flavor Allergy Unknown Unknown Uncoded 05/01/23 10:27 MAPLE SYRUP Allergy Unknown UNKNOWN Uncoded 05/01/23 10:27 Review of Systems Review of Systems: Yes all other systems are reviewed and are negative [facility] Past Medical History Medical History (Updated 05/03/23 @ 07:02 by Duglas Mack MD) Type 2 diabetes mellitus Hip fracture Surgical History (Updated 05/03/23 @ 07:00 by Duglas Mack MD) History of hip surgery Social History Alcohol intake: never Advance Directives: Yes Advance Directives on File: Yes Advance Directives Date on File: 04/26/23 Physical Exam ED Vital Signs: Vital Signs - 24 hr 05/02/23 21:09 05/02/23 22:02 05/03/23 02:37 Temperature 97.8 F 98.3 F 98 F Pulse Rate 119 H 102 H 99 Respiratory Rate 16 17 12 Blood Pressure 87/65 L 109/63 96/59 L Pulse Oximetry 97 97 97 Oxygen Delivery Method Room Air Room Air Room Air BMI result Body Mass Index 28.8 Appearance: Alert. Oriented X3. No acute distress. Eyes: PERRLA, No Nystagmus ENT: Pharynx normal. Oral Mucosa moist Neck: Normal inspection. Neck supple. CVS: Normal heart rate and rhythm. Pulses normal. Respiratory: No respiratory distress. Equal air entry bilateral, no wheezing/rales/rhonchi Abdomen: Soft and nontender. Bowel sounds are present, no mass palpable, no CVA tenderness Skin: Skin warm and dry. Normal skin color. Normal skin turgor. Extremities: No lower extremity edema. No calf tenderness tenderness in right hip area Neuro: Oriented X 3. No motor deficit. No sensory deficit.No cerebellar signs , cranial nerves II-XII intact Medications Administered Discontinued Medications Generic Name Dose Route Start Last Admin Trade Name Freq PRN Reason Stop Dose Admin Insulin Glargine 45 unit 05/02/23 22:46 05/02/23 23:17 Insulin Glargine,Hum.Rec.Anlog 100 Unit/Ml 10 Ml Vial SUBCUT 05/02/23 22:47 45 unit ONCE ONE Administration Insulin Human Lispro 6 unit 05/02/23 22:46 05/02/23 23:17 Insulin Lispro 100 Unit/Ml 3 Ml Vial SUBCUT 05/02/23 22:47 6 unit ONCE ONE Administration Oxycodone HCl 10 mg 05/02/23 22:46 05/02/23 23:16 Oxycodone Hcl Immed Release 5 Mg Tablet PO 05/02/23 22:47 10 mg ONCE ONE Administration Medical Decision Making Medical Decision Making MDM Narrative: Patient seen and stayed in the ER seen by the care team discharge came back again as no place to go. Will get care team involved again for placement Lab Data MDM Lab Attestation statement: I reviewed the patient's lab results. 05/02/23 22:15 05/02/23 22:15 Labs: Lab Results 05/02/23 05/02/23 05/03/23 Range/Units 22:15 23:15 00:09 WBC 6.6 (4.8-10.8) X10*3/uL RBC 4.55 L (4.60-5.80) X10*6/uL Hgb 12.7 L (14.0-18.0) g/dl Hct 38.0 L (42.0-52.0) % MCV 83.5 (80.0-98.0) fL MCH 27.9 (27.0-33.0) pg MCHC 33.4 (31.0-36.0) g/dl RDW 13.5 (11.0-16.0) % Plt Count 426 H (160-400) X10*3/uL MPV 9.1 L (9.4-12.4) fL Immature Gran % (Auto) 0.3 (0.0-0.4) % Neut % (Auto) 60.6 (45-73) % Lymph % (Auto) 22.5 (20-40) % [place] % (Auto) 13.6 H (2-11) % Eos % (Auto) 2.4 (0-4) % Baso % (Auto) 0.6 (0-2) % Lymph # (Auto) 1.5 (1.2-4.9) X10*3/uL [place] # (Auto) 0.9 (0.1-1.2) X10*3/uL Eos # (Auto) 0.2 (0.0-0.4) X10*3/uL Baso # (Auto) 0.0 (0.0-0.2) X10*3/uL Abs Immat Gran (auto) 0.02 (0.00-0.03) X10*3/uL Absolute Neuts (auto) 4.0 (2.0-8.3) x10*3/uL Absolute Nucleated RBC 0.000 (0.0-0.012) X10*3/uL Nucleated RBC % (auto) 0.0 (0.0-0.2) /100WBC Sodium 133 L (135-145) mmol/L Potassium 3.9 (3.3-5.1) mmol/L Chloride 101 (96-108) mmol/L Carbon Dioxide 24 (22-29) mmol/L Anion Gap 12 (12-20) BUN 19 H (9-16) mg/dL Creatinine 1.08 (0.5-1.4) mg/dL Estim Creat Clear Calc 76.5 Estimated GFR > 60 POC Glucose 279 H 194 H (60-115) mg/dL Random Glucose 318 H (60-115) mg/dL Calcium 8.8 (8.4-10.2) mg/dL Total Bilirubin 0.2 (0.0-1.0) mg/dL AST 16 (5-37) U/L ALT 19 (0-40) U/L Alkaline Phosphatase 156 H (39-117) U/L Total Protein 7.1 (6.5-8.0) g/dL Albumin 3.6 (3.5-5.0) g/dL Discharge Plan Discharge Clinical Impression: Homeless, Chronic pain of right hip Patient Disposition: Still a Patient Prescriptions: No Action atorvastatin 20 mg tablet 20 mg PO DAILY trazodone 50 mg tablet 25 mg PO BEDTIME pantoprazole 20 mg tablet,delayed release (DR/EC) 20 mg PO DAILY@0630 gabapentin 100 mg capsule 100 mg PO BID oxycodone 5 mg tablet 5 mg PO TID PRN (Reason: Pain) duloxetine 30 mg capsule,delayed release(DR/EC) 90 mg PO DAILY fludrocortisone 0.1 mg tablet 0.1 mg PO DAILY insulin glargine [Lantus Solostar U-100 Insulin] 100 unit/mL (3 mL) insulin pen 45 unit subcut BID sennosides [senna] 8.6 mg Tablet 8.6 mg PO BID acetaminophen [Tylenol] 325 mg Tablet 650 mg PO Q6H PRN (Reason: Pain) aspirin 81 mg Tablet,Delayed Release (Dr/Ec) See Rx Instructions .ROUTE .COMPLEX Rx Instructions: 81 mg orally BID ;END DATE: 05/04/23 aspirin 81 mg Tablet,Delayed Release (Dr/Ec) See Rx Instructions .ROUTE .COMPLEX Rx Instructions: 81 mg orally daily ;START DATE: 05/05/23 cefuroxime axetil 250 mg tablet 250 mg PO BID 7 Days Qty: 14 0RF
[2023-05-02 22:19] LABS: MANUAL DIFF FLAG NO
[2023-05-02 22:20] LABS: Basophils Percent Auto 0.6 % (0-2); Eosinophils Absolute Auto 0.2 X10*3/uL (0.0-0.4); Eosinophils Percent Auto 2.4 % (0-4); Hemoglobin 12.7 g/dl (14.0-18.0); Imm Gran Abs Auto 0.02 X10*3/uL (0.00-0.03); Imm Gran Pct Auto 0.3 % (0.0-0.4); Lymphocytes Absolute Auto 1.5 X10*3/uL (1.2-4.9); Lymphocytes Percent Auto 22.5 % (20-40); Mean Corpuscular HGB Conc 33.4 g/dl (31.0-36.0); Mean Corpuscular Hemoglobin 27.9 pg (27.0-33.0); Mean Corpuscular Volume 83.5 fL (80.0-98.0); Mean Platelet Volume 9.1 fL (9.4-12.4); Monocytes Absolute Auto 0.9 X10*3/uL (0.1-1.2); Monocytes Percent Auto 13.6 % (2-11); Neutrophils Percent Auto 60.6 % (45-73); Platelet Count 426 X10*3/uL (160-400); Red Blood Count 4.55 X10*6/uL (4.60-5.80); Red Cell Distribution Width 13.5 % (11.0-16.0); White Blood Count 6.6 X10*3/uL (4.8-10.8)
[2023-05-02 22:33] LABS: Alanine Aminotransferase 19 U/L (0-40); Albumin Level 3.6 g/dL (3.5-5.0); Alkaline Phosphatase 156 U/L (39-117); Anion Gap 12 (12-20); Aspartate Amino Transferase 16 U/L (5-37); Bilirubin Total 0.2 mg/dL (0.0-1.0); Blood Urea Nitrogen 19 mg/dL (9-16); Calcium 8.8 mg/dL (8.4-10.2); Carbon Dioxide 24 mmol/L (22-29); Chloride 101 mmol/L (96-108); Creatinine Clr Calc Pharmacy 76.5; Estimated Glomerular Filt Rate > 60; Glucose Random 318 mg/dL (60-115); Potassium 3.9 mmol/L (3.3-5.1); Sodium 133 mmol/L (135-145); Total Protein 7.1 g/dL (6.5-8.0)
[2023-05-02] MEDS: oxyCODONE HCl Immed Release 5 MG TABLET 10 MG PO (23:16)
[2023-05-02] MEDS: Insulin Lispro 100 UNIT/ML 3 ML VIAL 6 UNIT SUBCUT (23:17)
[2023-05-02] MEDS: Insulin Glargine,Hum.rec.anlog 100 UNIT/ML 10 ML VIAL 45 UNIT SUBCUT (23:17)
[2023-05-02 23:22] LABS: Glucose, Whole Blood 279 mg/dL (60-115)
[2023-05-03 00:13] LABS: Glucose, Whole Blood 194 mg/dL (60-115)
[2023-05-03 02:37] VITALS: BP 96/59; PULSE 99; RESP 12; TEMP 36.6; O2SAT 97
[2023-05-03 08:40] VITALS: BP 124/65; PULSE 95; RESP 12; TEMP 37.2; O2SAT 96
--- NOTE | 2023-05-03 08:48 | MHC.CM.ED ---
Received case management consult overnight from Dr Mack due to homelessness. Patient is well known to T/W due to coming to the 3 times in the past week d/t homelessness. Met with patient in regards to discharge planning. Patient's homelessness is not new. He will not qualify for STR. He has [facility] Safety Net. He will not qualify for [facility] Standard. He is a Level 3 Sex offender. He is able to ambulate. He has hi on him. Patient given 2 bus passes and was told he was going to be d/c'd. Bernarda REYNA aware. Continue to monitor for d/c needs.
== END 2023-05-03 09:06 | disposition home or self-care (01) ==
PROVIDERS: Emergency Provider Internal Medicine; PCP Internal Medicine
DX: M25.551 Pain in right hip (principal); R00.0 Tachycardia, unspecified; E11.9 Type 2 diabetes mellitus without complications; Z79.899 Other long term (current) drug therapy; Z79.4 Long term (current) use of insulin; Z59.00 Homelessness unspecified
CPT/HCPCS: 36415; 73502; 80053; 82947; 85025; 93005; 99285

== ENCOUNTER 2023-05-03 12:08 | Emergency (ER) | payer OTHER, SELFPAY ==
--- NOTE | 2023-05-03 12:58 | ED.GENADULT ---
HPI - General Adult General Chief complaint: General Medical Stated complaint: Hip pain, dizziness Time Seen by Provider: 05/03/23 13:05 Source: patient Mode of arrival: ambulatory Limitations: no limitations History of Present Illness HPI narrative: 73 year old male with pmhx significant for T2DM and hip fracture s/p ORIF on 03/01/23 presents to ED today for complaint of right hip pain x months. He was discharged from our facility 5 hours ago after extensive work up and returns with the same complaint. Ambulating with steady gait using walker. States that he has not called any of the resources that were provided to him upon discharge this morning, yesterday, or the day before. No other complaints in ED. Related Data Home Medications Medication Instructions Recorded Confirmed acetaminophen 325 mg tablet 650 mg PO Q6H PRN Pain 04/26/23 05/02/23 (Tylenol) aspirin 81 mg tablet,delayed See Rx Instructions .Route .COMPLEX 04/26/23 05/02/23 release aspirin 81 mg tablet,delayed See Rx Instructions .Route .COMPLEX 04/26/23 05/02/23 release atorvastatin 20 mg tablet 20 mg PO DAILY 04/26/23 05/02/23 duloxetine 30 mg capsule,delayed 90 mg PO DAILY 04/26/23 05/02/23 release fludrocortisone 0.1 mg tablet 0.1 mg PO DAILY 04/26/23 05/02/23 gabapentin 100 mg capsule 100 mg PO BID 04/26/23 05/02/23 insulin glargine 100 unit/mL (3 45 unit subcut BID 04/26/23 05/02/23 mL) subcutaneous pen (Lantus Solostar U-100 Insulin) oxycodone 5 mg tablet 5 mg PO TID PRN Pain 04/26/23 05/02/23 pantoprazole 20 mg tablet,delayed 20 mg PO DAILY@0630 04/26/23 05/02/23 release sennosides 8.6 mg tablet (senna) 8.6 mg PO BID 04/26/23 05/02/23 trazodone 50 mg tablet 25 mg PO BEDTIME 04/26/23 05/02/23 Previous Rx's Medication Instructions Recorded cefuroxime axetil 250 mg tablet 250 mg PO BID 7 days #14 tabs 05/02/23 Allergies Allergy/AdvReac Type Severity Reaction Status Date / Time penicillin V Allergy Unknown Unknown Verified 05/01/23 10:27 Penicillins [PCN] Allergy Unknown SWELLING Verified 05/01/23 10:27 Sulfa (Sulfonamide Allergy Unknown Unknown Verified 05/01/23 10:27 Antibiotics) sulfamethoxazole Allergy Unknown DIFFICULTY Verified 05/01/23 10:27 [From BACTRIM] BREATHING trimethoprim [From BACTRIM] Allergy Unknown DIFFICULTY Verified 05/01/23 10:27 BREATHING Maple Flavor Allergy Unknown Unknown Uncoded 05/01/23 10:27 MAPLE SYRUP Allergy Unknown UNKNOWN Uncoded 05/01/23 10:27 Review of Systems Review of Systems: Constitutional: No fever, chills, fatigue, night sweats, weight changes ENT/Mouth: No ear pain, hearing loss, nasal congestion, sinus pain, rhinorrhea, sore throat Eyes: No eye pain, swelling, redness, vision changes, discharge Cardio: No chest pain, palpitations, MACDONALD, orthopnea, peripheral edema Pulm: No SOB, cough, sputum, wheezing, dyspnea, hemoptysis GI: No nausea, vomiting, hematemesis, abdominal pain, diarrhea, constipation, hematochezia, melena : No irregular bleeding, dysuria, frequency, urgency, hesitancy, hematuria, flank pain, urinary flow changes, urinary incontinence or retention MSK: No back pain, neck pain, joint pain, myalgias, +right hip pain Skin: No lesions, rashes Neuro: No weakness, numbness, paresthesias, LOC, +dizziness, No headache All other systems reviewed and are negative. [facility] Past Medical History Attestation statement: The following information was validated with the patient. Source: old records reviewed and nursing notes reviewed Medical History Type 2 diabetes mellitus Hip fracture Surgical History History of hip surgery Social History Alcohol intake: never Advance Directives: Yes Advance Directives on File: Yes Advance Directives Date on File: 04/26/23 Physical Exam ED Vital Signs: Vital Signs - 24 hr 05/03/23 12:59 Temperature 97.7 F Pulse Rate 104 H Respiratory Rate 18 Blood Pressure 95/75 Pulse Oximetry 97 Oxygen Delivery Method Room Air BMI result Body Mass Index 28.0 Const General: cooperative, no acute distress, alert and awake Orientation/consciousness: patient oriented x3 Limitations: no limitations HENMT Teeth and gingiva: poor dentition Eyes General: appearance normal, both eyes and all related structures Conjunctivae: conjunctivae normal Sclerae: sclerae normal Pupils: Equal, round and reactive pupils present EOM: No Nystagmus present Resp Effort & Inspection: normal respiratory effort Auscultation: clear to auscultation bilaterally Cardio Rate: regular rate Rhythm: regular rhythm Peripheral pulses: No Peripheral pulses 2+ throughout, posterior tibial pulses present and dorsalis pedis present GI Inspection: Yes normal to inspection Palpation (GI): Soft to palpation and nontender Back/Spine/Pelvis Other: No midline spinous tenderness. No step off deformity. No paraspinal muscle tenderness. Right hip w/o TTP. No deformity. There is a scar noted to lateral aspect of the right hip s/p ORIF, no hematoma, warmth or overlying fluctuance. Strength 5/5 intact throughout.?No saddle anesthesia.?Sensation intact to light touch.?NV intact distally.? Pelvis: no pain with anterior-posterior compression and no pain with lateral compression Skin General skin exam: no rashes or lesions noted Neuro General: patient oriented x3, gait normal and moves all extremities Cranial nerves: Yes CN's II-XII intact bilaterally, Yes Equal, round and reactive pupils present and No Nystagmus present Extrem General: Yes normal to inspection, Yes full ROM and Yes capillary refill normal Psych Appearance: disheveled Course Course Course Narrative: RME: 73 yo male presents to ED with right hip pain x1 mo. States the entire right side of his body hurts from head to toe . Also endorses dizziness that began yesterday. Room spinning sensation. Seen here multiple times this month for same. Work up unremarkable. Passed PT. PE: Presents ambulating with walker. Transferred to wheelchair. TTP of right hip. Full HPI, ROS and PE to be performed by the primary ED provider. Medical Decision Making Medical Decision Making MDM Narrative: 73 year old male with pmhx significant for T2DM and hip fracture s/p ORIF on 03/01/23 presents to ED today for complaint of chronic right hip pain. On review of chart, patient has been evaluated for this various times over the last month. He has been evaluated and cleared by physical therapy multiple times as he has been ambulating with steady. Per case management, he is status 3 sex offender and is unable to be placed at a rehab facility due to this status. Upon discharge this morning stated he felt comfortable being discharged home and ambulated with steady gait out of the ED. Upon discharge, he was provided with a list of hotels to call. He has been provided with various resources for assisted. His VS today are notable for mild hypotension however upon review of previous vitals, his bp tends to run soft and is currently denying headache or dizziness. He is in no acute distress. He is slightly tachycardic however this has been around his baseline over the last few months. Denies chest pain, palpitations, or SOB. On initial evaluation he reports right hip pain. Upon questioning whether he has called any of the numbers we have provided him with he states no I've been in too much pain . Upon arrival, pt ambulated with steady gait into the ED using a walker and was then transported to a wheelchair at his request. There is no tenderness to palpation of the right hip or palpable deformity. Scar noted to right hip s/p ORIF, no hematoma, warmth or overlying fluctuance. He is afebrile. Neuro exam is nonfocal. Exam is essentially unremarkable and symptoms are unchanged since being discharged home this morning. I do not suspect hip fracture/ dislocation, septic joint, hematoma, AVN, cauda equina. Case discussed with my attending physician, Dr. Marycarmen Coles who agrees that the patient is safe and stable for discharge home. I explained to the patient that there is no need for further labs or imaging as he has had an extensive workup over the last few weeks that has not revealed any abnormalities and returns today without any acute change. I discussed return precautions. All questions answered at this time. Patient is stable for discharge. Differential Diagnosis Differential Diagnoses: The differential diagnosis associated with the presentation includes As above. Admission/Observation Not indicated. External Record Review External record reviewed: Inpatient record, Office record, Outpatient record, Prior outpatient labs, Prior outpatient radiology, Primary care record and Outside ED record Critical Care Time Critical Care Time Critical Care Time: No Discharge Plan Discharge Clinical Impression: Chronic pain of right hip, Homeless Patient Disposition: Home, Self-Care Instructions: Hip Pain (ED) Additional Instructions: You have been seen here multiple times in the last month with unremarkable workup. You have been seen and cleared by Physical therapy various times. You have been provided with multiple resources for assisted. Please use the resources that have been provided to you. If you have worsening symptoms return to the ED. Prescriptions: No Action atorvastatin 20 mg tablet 20 mg PO DAILY trazodone 50 mg tablet 25 mg PO BEDTIME pantoprazole 20 mg tablet,delayed release (DR/EC) 20 mg PO DAILY@0630 gabapentin 100 mg capsule 100 mg PO BID oxycodone 5 mg tablet 5 mg PO TID PRN (Reason: Pain) duloxetine 30 mg capsule,delayed release(DR/EC) 90 mg PO DAILY fludrocortisone 0.1 mg tablet 0.1 mg PO DAILY insulin glargine [Lantus Solostar U-100 Insulin] 100 unit/mL (3 mL) insulin pen 45 unit subcut BID sennosides [senna] 8.6 mg Tablet 8.6 mg PO BID acetaminophen [Tylenol] 325 mg Tablet 650 mg PO Q6H PRN (Reason: Pain) aspirin 81 mg Tablet,Delayed Release (Dr/Ec) See Rx Instructions .ROUTE .COMPLEX Rx Instructions: 81 mg orally BID ;END DATE: 05/04/23 aspirin 81 mg Tablet,Delayed Release (Dr/Ec) See Rx Instructions .ROUTE .COMPLEX Rx Instructions: 81 mg orally daily ;START DATE: 05/05/23 cefuroxime axetil 250 mg tablet 250 mg PO BID 7 Days Qty: 14 0RF Interventions: ED Discharge Assessment Last Done: 05/03/23 13:57 Discharge Date/Time: 05/03/23 13:58
[2023-05-03 12:59] VITALS: BP 95/75; PULSE 104; RESP 18; TEMP 36.5; O2SAT 97; BMI 28.0
== END 2023-05-03 13:58 | disposition home or self-care (01) ==
LOC: HO.ED 13:54
PROVIDERS: Emergency Provider Emergency Medicine; PCP Internal Medicine
DX: G89.29 Other chronic pain (principal); M25.551 Pain in right hip; Z59.00 Homelessness unspecified; E11.9 Type 2 diabetes mellitus without complications; Z79.82 Long term (current) use of aspirin; Z79.4 Long term (current) use of insulin; Z79.899 Other long term (current) drug therapy
CPT/HCPCS: 99282

== ENCOUNTER 2023-05-30 09:02 | Emergency (ER) | payer OTHER, SELFPAY ==
--- NOTE | ~2023-05-30 | XR_ITS ---
EXAMINATION: XR HIP, RIGHT CLINICAL INFORMATION: Right hip pain COMPARISON: 05/03/2023. TECHNIQUE: Two views of the right hip. FINDINGS: Fracture line of the right femoral neck, seen previously, appears more evident. The right hip screws are in position with stable alignment. No new acetabular or pubic disruption. XR/XR hip RT min 2V IMPRESSION: Stable alignment since the previous evaluation. The fracture line at the right femoral neck appears more evident.
--- NOTE | ~2023-05-30 | XR_ITS ---
EXAMINATION: XR HIP, LEFT CLINICAL INFORMATION: Left hip pain COMPARISON: None available. TECHNIQUE: AP view pelvis and 2 additional views of the left hip. FINDINGS: No left hip fracture or dislocation seen. Slight narrowing of the superior medial left hip joint space. No erosive process. Intertrochanteric region unremarkable. XR/XR hip LT w PEL1V IMPRESSION: No acute process. Slight narrowing of the superior medial left hip joint space.
[2023-05-30 09:07] VITALS: BP 135/80; PULSE 90; O2SAT 98
[2023-05-30 09:21] VITALS: BP 117/58; PULSE 87; RESP 16; TEMP 37; O2SAT 100; BMI 29.1
--- NOTE | 2023-05-30 09:31 | PC.NURSE ---
Pt reports right hip pain x 2 months since surgery and also reports left hip pain since fall last night. Pt unable to give details regarding fall states I didn't really fall but maybe I passed out I dont know Pt also reports seen at [facility] last night and discharged. +CMS to b/l extremities but yells out with movement for right leg. Also states burning with urination.
--- NOTE | 2023-05-30 11:08 | ED_ITS ---
HPI - Extremity Problem General Chief complaint: Extremity Problem Stated complaint: CHRONIC HIP PAIN Time Seen by Provider: 05/30/23 09:03 History of Present Illness HPI Narrative: Patient is a 73-year-old male presents today with bilateral hip pain. Patient was seen at [facility] last night was discharged complaining of continuing pain. No fever no chills no systemic complaints. Has a long history of falling. Has a long history of hip pain. Been seen multiple times at multiple hospitals. Status post ORIF on the right side. Related Data Home Medications Medication Instructions Recorded Confirmed acetaminophen 325 mg tablet 650 mg PO Q6H PRN Pain 04/26/23 05/02/23 (Tylenol) aspirin 81 mg tablet,delayed See Rx Instructions .Route .COMPLEX 04/26/23 05/02/23 release aspirin 81 mg tablet,delayed See Rx Instructions .Route .COMPLEX 04/26/23 05/02/23 release atorvastatin 20 mg tablet 20 mg PO DAILY 04/26/23 05/02/23 duloxetine 30 mg capsule,delayed 90 mg PO DAILY 04/26/23 05/02/23 release fludrocortisone 0.1 mg tablet 0.1 mg PO DAILY 04/26/23 05/02/23 gabapentin 100 mg capsule 100 mg PO BID 04/26/23 05/02/23 insulin glargine 100 unit/mL (3 45 unit subcut BID 04/26/23 05/02/23 mL) subcutaneous pen (Lantus Solostar U-100 Insulin) oxycodone 5 mg tablet 5 mg PO TID PRN Pain 04/26/23 05/02/23 pantoprazole 20 mg tablet,delayed 20 mg PO DAILY@0630 04/26/23 05/02/23 release sennosides 8.6 mg tablet (senna) 8.6 mg PO BID 04/26/23 05/02/23 trazodone 50 mg tablet 25 mg PO BEDTIME 04/26/23 05/02/23 Previous Rx's Medication Instructions Recorded cefuroxime axetil 250 mg tablet 250 mg PO BID 7 days #14 tabs 05/02/23 cephalexin 500 mg capsule 500 mg PO TID 7 days #21 caps 05/30/23 Allergies Allergy/AdvReac Type Severity Reaction Status Date / Time penicillin V Allergy Unknown Unknown Verified 05/01/23 10:27 Penicillins [PCN] Allergy Unknown SWELLING Verified 05/01/23 10:27 Sulfa (Sulfonamide Allergy Unknown Unknown Verified 05/01/23 10:27 Antibiotics) sulfamethoxazole Allergy Unknown DIFFICULTY Verified 05/01/23 10:27 [From BACTRIM] BREATHING trimethoprim [From BACTRIM] Allergy Unknown DIFFICULTY Verified 05/01/23 10:27 BREATHING Maple Flavor Allergy Unknown Unknown Uncoded 05/01/23 10:27 MAPLE SYRUP Allergy Unknown UNKNOWN Uncoded 05/01/23 10:27 Review of Systems Review of Systems: No fever no chills no chest pain or shortness of breath no diaphoresis. Yes all other systems are reviewed and are negative PMFSH Past Medical History Attestation statement: The following information was validated with the patient. Medical History Type 2 diabetes mellitus Hip fracture Surgical History History of hip surgery Social History Social History Alcohol intake: never Smoked in Last 30 Days: No Use of substances other than those prescribed or required for medical reasons: No Advance Directives: Yes Advance Directives on File: Yes Advance Directives Date on File: 04/26/23 Physical Exam Vital Signs: Vital Signs: Last Vital Signs Temp 98.6 F 05/30/23 09:21 Pulse 87 05/30/23 09:21 Resp 16 05/30/23 09:21 BP 117/58 L 05/30/23 09:21 Pulse Ox 100 05/30/23 09:21 O2 Del Method Room Air 05/30/23 09:21 BMI result Body Mass Index 29.1 Appearance: Alert. Oriented X3. No acute distress. Eyes: Pupils equal, round and reactive to light. ENT: Pharynx normal. Neck: Normal inspection. Neck supple. No lymph nodes noted. No crepitus CVS: Normal heart rate and rhythm. Pulses normal. Normal S1 and S2 Respiratory: No respiratory distress. Breath sounds normal. No Wheezing. No rales Abdomen: Soft and nontender. No rigidity. No distention. good BS x4 Skin: Skin warm and dry. Normal skin color. Normal skin turgor. Extremities: No lower extremity edema. Neurovascular intact to all extremities. No Lacerations. No Rash Neuro: Oriented X 3. No motor deficit. No sensory deficit. Moving all extermities. No slurred speech Medical Decision Making Medical Decision Making [facility] Narrative: 73 years old history of having right hip fracture in the past. Status post MOJGAN F. Presented today with having pain to the hips again. History of UTI history of been to multiple hospitals for the same pain. Patient was witnessed to be ambulatory. Patient's urine appears infected. Will start patient on Keflex. Had a previous history of penicillin allergy but had had cephalosporin prescribed to him in the past. Patient in no distress. Neurologically intact. Social work involved. Discussed with patient. He has a place to stay at a local motel. He is currently in stable condition. His antibiotic was brought up to him. Differential Diagnosis Differential Diagnoses: The differential diagnosis associated with the presentation includes UTI, hip fracture Admission/Observation Consideration of admission/observation: Escalation of care including admission/observation considered No need for admission condition chronic ambulatory Lab Data [facility] Lab Attestation statement: I reviewed the patient's lab results. Labs: Lab Results 05/30/23 Range/Units 11:09 Urine Color Yellow Urine Appearance Clear Urine pH 6.0 (5.0-9.0) Ur Specific [place] 1.025 (1.005-1.025) Urine Protein 30 (1+) H (Neg-Trace) mg/dL Urine Glucose (UA) >=1000 H (Negative) mg/dL Urine Ketones Negative (Negative) mg/dL Urine Blood Small (1+) H (Negative) Urine Nitrite Negative (Negative) Ur Leukocyte Esterase Small (1+) H (Negative) Urine RBC 0-2 (0-2) /HPF Urine WBC >50 H (0-5) /HPF Urine WBC Clumps Present Ur Squamous Epith Cells 0-2 (0-2) /HPF Urine Bacteria None Seen (None Seen) Hyaline Casts 0-2 (0-2) /LPF Independent Interpretation I performed an independent interpretation of an: Plain X-Ray (X-ray of the bilateral hips showed no acute fracture) Radiology Impression Discussion of test interpretation with radiology: I have reviewed the radiologist's reading. External Record Review External record reviewed: Prior outpatient radiology and Primary care record Chronic Conditions History of hip fracture in the past Social Determinants Patient?s care significantly limited by Social Determinants of Health including: Inadequate housing, Problems related to primary support group and Unemployment Discharge Plan Discharge Clinical Impression: Acute UTI Patient Disposition: Home, Self-Care Instructions: Urinary Tract Infection in Men (DC) Prescriptions: New cephalexin 500 mg capsule 500 mg PO TID 7 Days Qty: 21 0RF No Action atorvastatin 20 mg tablet 20 mg PO DAILY trazodone 50 mg tablet 25 mg PO BEDTIME pantoprazole 20 mg tablet,delayed release (DR/EC) 20 mg PO DAILY@0630 gabapentin 100 mg capsule 100 mg PO BID oxycodone 5 mg tablet 5 mg PO TID PRN (Reason: Pain) duloxetine 30 mg capsule,delayed release(DR/EC) 90 mg PO DAILY fludrocortisone 0.1 mg tablet 0.1 mg PO DAILY insulin glargine [Lantus Solostar U-100 Insulin] 100 unit/mL (3 mL) insulin pen 45 unit subcut BID sennosides [senna] 8.6 mg Tablet 8.6 mg PO BID acetaminophen [Tylenol] 325 mg Tablet 650 mg PO Q6H PRN (Reason: Pain) aspirin 81 mg Tablet,Delayed Release (Dr/Ec) See Rx Instructions .ROUTE .COMPLEX Rx Instructions: 81 mg orally BID ;END DATE: 05/04/23 aspirin 81 mg Tablet,Delayed Release (Dr/Ec) See Rx Instructions .ROUTE .COMPLEX Rx Instructions: 81 mg orally daily ;START DATE: 05/05/23 cefuroxime axetil 250 mg tablet 250 mg PO BID 7 Days Qty: 14 0RF Referrals: Jose Griffin III, MD [Primary Care Provider] - 06/03/23
[2023-05-30 11:16] LABS: Appearance Urine Clear; Color Urine Yellow; Glucose Urine UA >=1000 mg/dL (Negative); Leukocyte Esterase Urine Small (1+) (Negative); Nitrite Urine Negative (Negative); Specific Gravity - Urine 1.025 (1.005-1.025); UMIC TRIGGER UACC YES; Urine Blood Small (1+) (Negative); Urine Ketones Negative (Negative); Urine Protein 30 (1+) mg/dL (Neg-Trace)
[2023-05-30 11:49] LABS: Bacteria Urine None Seen (None Seen); Hyaline Casts Urine 0-2 /LPF (0-2); RBC Urine 0-2 /HPF (0-2); Squamous Epithelial Cell Urine 0-2 /HPF (0-2); UACC Culture Trigger YES; WBC Clumps Urine Present; WBC Urine >50 /HPF (0-5)
--- NOTE | 2023-05-30 12:22 | PC.NURSE ---
Pt asking for pain medication, provider aware.
--- NOTE | 2023-05-30 14:06 | PC.NURSE ---
While attempting to d/c pt repeatedly endorsing SI statements stating just put me over the sink and ill cut my throat Pt changed to crisis attire and moved to Pod. Belongings in laundry room with ABX brought by pharmacy in belongings. Also noted an empty Oxycodone bottle.
--- NOTE | 2023-05-30 14:28 | MHC.CARE ---
CARE Team attempted to meet with Pt to clarify what type of support he was looking for; Pt states I want to , I am in pain and I will find a knife and cut my throat . CARE Team reviewed with Dr. Max, plan for CARE Team to evaluated upon medical clearance. CARE Team called [facility] [employer] for collateral information; Pt is unknown to co-response.
--- NOTE | 2023-05-30 14:39 | PC.NURSE ---
patient a&ox3, screaming help me, help me upon this nurse speaking with the patient he is seeking pain meds for hip pain- provider previously has declined anymore medications, pt making SI statements to this nurse as well as the care team clinician, the clinician went and spoke with Dr. Vegas to order full set of labs for the patient. Pts vitals are currently stable, pt now sitting in back room.
[2023-05-30 14:41] VITALS: BP 112/67; PULSE 92; RESP 15; TEMP 37.3; O2SAT 98
--- NOTE | 2023-05-30 15:56 | PC.NURSE ---
pt got oob ambulated with walker/steady gait to bathroom, returned back to his bed and began screaming help me, help me when staff asked him what he needed help with he stated you come cover me up this nurse and tech told the patient that he could cover himself, pt then covered himself and stated you Bitch .
--- NOTE | 2023-05-30 17:53 | PC.NURSE ---
patient oob ambulating with walker-steady gait, pt came to the nurses station exhibiting his dislike for his food, pt offered sandwich which he declined, pt to have labs drawn when he is finished with the rest of his dinner, will continue to monitor.
[2023-05-30 18:59] LABS: MANUAL DIFF FLAG NO
[2023-05-30 19:08] LABS: Basophils Absolute Auto 0.1 X10*3/uL (0.0-0.2); Basophils Percent Auto 0.8 % (0-2); Eosinophils Absolute Auto 0.1 X10*3/uL (0.0-0.4); Eosinophils Percent Auto 1.8 % (0-4); Hemoglobin 12.5 g/dl (14.0-18.0); Imm Gran Abs Auto 0.03 X10*3/uL (0.00-0.03); Imm Gran Pct Auto 0.4 % (0.0-0.4); Lymphocytes Absolute Auto 1.1 X10*3/uL (1.2-4.9); Lymphocytes Percent Auto 14.9 % (20-40); Mean Corpuscular HGB Conc 33.8 g/dl (31.0-36.0); Mean Corpuscular Hemoglobin 28.2 pg (27.0-33.0); Mean Corpuscular Volume 83.5 fL (80.0-98.0); Mean Platelet Volume 10.1 fL (9.4-12.4); Monocytes Absolute Auto 0.9 X10*3/uL (0.1-1.2); Monocytes Percent Auto 11.9 % (2-11); Neutrophils Absolute Auto 5.4 x10*3/uL (2.0-8.3); Neutrophils Percent Auto 70.2 % (45-73); Platelet Count 418 X10*3/uL (160-400); Red Blood Count 4.43 X10*6/uL (4.60-5.80); Red Cell Distribution Width 13.4 % (11.0-16.0); White Blood Count 7.6 X10*3/uL (4.8-10.8)
[2023-05-30 19:33] LABS: Anion Gap 12 (12-20); Blood Urea Nitrogen 7 mg/dL (9-16); Calcium 9.1 mg/dL (8.4-10.2); Carbon Dioxide 27 mmol/L (22-29); Chloride 98 mmol/L (96-108); Creatinine Clr Calc Pharmacy 92.3; Estimated Glomerular Filt Rate > 60; Ethanol < 10 mg/dL; Glucose Random 303 mg/dL (60-115); Potassium 3.2 mmol/L (3.3-5.1); Sodium 134 mmol/L (135-145)
--- NOTE | 2023-05-30 19:49 | PC.NURSE ---
patient who was up and about at neginning of shift now slumbering in bed, patient appears in no distress presently.
[2023-05-30] MEDS: Ibuprofen 800 MG TABLET PO (20:09)
[2023-05-30 21:11] VITALS: BP 149/84; PULSE 89; RESP 18; TEMP 37.3; O2SAT 97
--- NOTE | 2023-05-30 21:20 | PHA.MEDREC ---
Pharmacy Consult ? Medication Reconciliation Pharmacy has completed the medication reconciliation. Patient unsure of medications. Utlized claim history to complete med rec. Patient reported lantus 14 units to the RN however patient has been prescribed 30-45 units in the past. Therefore left lantus unconfirmed. Eda Hernandez, PharmD
[2023-05-30 21:28] LABS: Glucose, Whole Blood 273 mg/dL (60-115)
[2023-05-30] MEDS: traZODone HCL 25 MG HALFTAB PO (22:29)
[2023-05-30] MEDS: Insulin Glargine,Hum.rec.anlog 100 UNIT/ML 10 ML VIAL 25 UNIT SUBCUT (22:29)
[2023-05-30] MEDS: Gabapentin 100 MG CAPSULE PO (22:29)
[2023-05-30 22:52] LABS: Amphetamine Screen Urine Not Detected (Not Detect); Barbiturates, Urine Not Detected (Not Detect); Benzodiazepines Screen Urine Not Detected (Not Detect); Cannabinoid Screen Urine Not Detected (Not Detect); Cocaine Screen Urine Not Detected (Not Detect); Fentanyl, urine Not Detected (Not Detect); Opiate Screen Urine Not Detected (Not Detect); Phencyclidine Screen Urine Not Detected (Not Detect)
[2023-05-31] MEDS: cephALEXin 500 MG CAPSULE PO (00:55)
[2023-05-31] MEDS: OLANZapine 5 MG TABLET PO (03:20)
[2023-05-31] MEDS: Omeprazole 20 MG CAPSULE.DR PO (05:13)
[2023-05-31] MEDS: Acetaminophen 325 MG TABLET 975 MG PO (05:13)
[2023-05-31 05:55] VITALS: BP 132/76; PULSE 78; RESP 16; TEMP 37.2; O2SAT 97
--- NOTE | 2023-05-31 07:37 | PC.NURSE ---
PT A/O NO SOB/KEVEN NOTED SPEAKS IN FULL SENTENCES. INCONTINENT OF URINE. BREAKFAST BEDSIDE. PT C/O 02/16 CHRONIC PAIN. PT DENIES ANY SI/HI. WILL CONTINUE TO MONITOR.
[2023-05-31 07:38] LABS: Glucose, Whole Blood 174 mg/dL (60-115)
[2023-05-31 08:02] VITALS: BP 161/95; PULSE 93; RESP 18; TEMP 36.9; O2SAT 96
[2023-05-31] MEDS: Insulin Lispro 100 UNIT/ML 3 ML VIAL SUBCUT ×2 (08:30→18:01)
[2023-05-31] MEDS: Atorvastatin Calcium 20 MG TABLET PO (08:31)
[2023-05-31] MEDS: Gabapentin 100 MG CAPSULE PO (08:31)
[2023-05-31] MEDS: Insulin Glargine,Hum.rec.anlog 100 UNIT/ML 10 ML VIAL 25 UNIT SUBCUT (08:31)
[2023-05-31] MEDS: Aspirin Enteric Coated 81 MG TABLET.DR PO (08:32)
[2023-05-31] MEDS: DULoxetine HCl 30 MG CAPSULE.DR 90 MG PO (08:32)
[2023-05-31] MEDS: Potassium Chloride ER 20 MEQ TAB.ER.PRT PO (08:32)
--- NOTE | 2023-05-31 09:20 | PC.NURSE ---
RN TO RN REPORT GIVEN TO SANDER Smith PT IS BEING TRANSFERRED TO THE MAIN ED BED 22. PT AWARE OF PLAN OF CARE.
--- NOTE | 2023-05-31 09:39 | PC.NURSE ---
patient ambulated utilizing walker with strong steady gait to bed 22. provided with pillow and warm blanket, appears to be sleeping at this time.
[2023-05-31 12:49] LABS: Glucose, Whole Blood 149 mg/dL (60-115)
--- NOTE | 2023-05-31 14:21 | PC.NURSE ---
ate lunch, resting quietly in room with even and unlabored respirations. continues to await care team evaluation.
[2023-05-31] MEDS: Ibuprofen 600 MG TABLET PO (16:06)
--- NOTE | 2023-05-31 16:09 | PC.NURSE ---
patient provided with blanket and ibuprofen for pain. requesting to watch TV, informed as to the fact that he made SI statements and should not have the cord in the room. stating that the suicidal statements are an if type of basis, I'm not suicidal now .
[2023-05-31 18:01] LABS: Glucose, Whole Blood 205 mg/dL (60-115)
== END 2023-05-31 19:12 | disposition home or self-care (01) ==
PROVIDERS: Internal Medicine; Emergency Provider Emergency Medicine Emergency Medical Services; PCP Internal Medicine
DX: M25.552 Pain in left hip (principal); M25.551 Pain in right hip; N39.0 Urinary tract infection, site not specified; F60.2 Antisocial personality disorder; R45.851 Suicidal ideations; E11.9 Type 2 diabetes mellitus without complications; Z79.82 Long term (current) use of aspirin; Z79.4 Long term (current) use of insulin; Z79.899 Other long term (current) drug therapy
CPT/HCPCS: 36415; 73502; 80048; 80307; 81001; 82947; 85025; 87086; 99285; S9485

== ENCOUNTER 2023-06-07 18:22 | Emergency (ER) | payer OTHER, SELFPAY ==
--- NOTE | ~2023-06-07 | CT_ITS ---
EXAMINATION: CT PELVIS WITHOUT CONTRAST CLINICAL INFORMATION: Fall and pain COMPARISON: 05/30/2023 plain films of the right hip TECHNIQUE: Helical scanning was performed with submillimeter collimation through the pelvis. Sagittal and coronal multiplanar 2-D reconstructions were obtained. This CT examination was performed using dose optimization techniques as appropriate, variously including the following: *Automated exposure control *Adjustment of mA and/or kV according to patient size (this includes techniques or standardized protocols for targeted exams where dose is matched to indication/reason for exam; i.e. extremities or head) *Use of iterative reconstruction technique DLP: 437 mGy-cm FINDINGS: PELVIS: Bladder is decompressed. Scattered colonic diverticulosis. No significant free fluid. No bulky adenopathy. OSSEOUS STRUCTURES: 3 cortical screws are seen through the previously noted right femoral neck fracture. Alignment is similar to the recent prior plain film study. I do not appreciate any acute fracture or dislocation otherwise. Mild degenerative changes in the bilateral hips, sacroiliac joints, and lower lumbar spine. CT/CT pelvis wo IV con IMPRESSION: No acute fracture or dislocation. 3 cortical screws are seen through the previously noted right femoral neck fracture. Alignment is similar to the recent prior plain film study.
[2023-06-07 18:30] VITALS: BP 110/80; PULSE 90; O2SAT 99
[2023-06-07 19:02] VITALS: BP 120/75; PULSE 88; RESP 18; O2SAT 97; BMI 28.8
--- NOTE | 2023-06-07 19:21 | ED.EXTPRO ---
HPI - Extremity Problem General Chief complaint: Extremity Problem Stated complaint: HIP PAIN Time Seen by Provider: 06/07/23 19:06 Source: patient and EMS Mode of arrival: EMS Limitations: no limitations History of Present Illness HPI Narrative: A 73-year-old male came in by ambulance for evaluation of bilateral hip pain left hip hurt more than the right hip patient had a mechanical fall yesterday was seen at [facility] was told his x-ray was fine, patient normally walk with a walker patient is unable to ambulate even with a walker due to severe pain. Related Data Home Medications Medication Instructions Recorded Confirmed acetaminophen 325 mg tablet 650 mg PO Q6H PRN Pain 04/26/23 05/30/23 (Tylenol) aspirin 81 mg tablet,delayed 81 mg PO DAILY 04/26/23 05/30/23 release atorvastatin 20 mg tablet 20 mg PO DAILY 04/26/23 05/30/23 duloxetine 30 mg capsule,delayed 90 mg PO DAILY 04/26/23 05/30/23 release fludrocortisone 0.1 mg tablet 0.1 mg PO DAILY 04/26/23 05/30/23 gabapentin 100 mg capsule 100 mg PO BID 04/26/23 05/30/23 insulin glargine 100 unit/mL (3 45 unit subcut BID 04/26/23 05/02/23 mL) subcutaneous pen (Lantus Solostar U-100 Insulin) oxycodone 5 mg tablet 5 mg PO TID PRN Pain 04/26/23 05/30/23 pantoprazole 20 mg tablet,delayed 20 mg PO DAILY@0630 04/26/23 05/30/23 release trazodone 50 mg tablet 25 mg PO BEDTIME 04/26/23 05/30/23 potassium chloride 10 mEq 20 meq PO DAILY 05/30/23 05/30/23 tablet,extended release Previous Rx's Medication Instructions Recorded cephalexin 500 mg capsule 500 mg PO TID 7 days #21 caps 05/30/23 Allergies Allergy/AdvReac Type Severity Reaction Status Date / Time penicillin V Allergy Unknown Unknown Verified 05/01/23 10:27 Penicillins [PCN] Allergy Unknown SWELLING Verified 05/01/23 10:27 Sulfa (Sulfonamide Allergy Unknown Unknown Verified 05/01/23 10:27 Antibiotics) sulfamethoxazole Allergy Unknown DIFFICULTY Verified 05/01/23 10:27 [From BACTRIM] BREATHING trimethoprim [From BACTRIM] Allergy Unknown DIFFICULTY Verified 05/01/23 10:27 BREATHING Maple Flavor Allergy Unknown Unknown Uncoded 05/01/23 10:27 MAPLE SYRUP Allergy Unknown UNKNOWN Uncoded 05/01/23 10:27 Review of Systems Review of Systems: All other systems are reviewed and are negative Constitutional: Reports as per HPI and Reports no additional constitutional complaints Eyes: Reports as per HPI and Reports no additional eye complaints Reports system reviewed and no additional complaints, except as documented Cardiovascular: Reports as per HPI and Reports no additional cardiovascular complaints Respiratory: Reports as per HPI and Reports no additional respiratory complaints Gastrointestinal: Reports as per HPI and Reports no additional gastrointestinal complaints Genitourinary: Reports no additional female genitourinary complaints Musculoskeletal: Reports no additional musculoskeletal complaints Skin/Breast: Reports system reviewed and no additional complaints, except as docu Psychiatric: Reports no additional psychiatric complaints Endocrine: Reports no additional endocrine complaints Hematologic/Lymphatic: Reports no additional hematologic/lymphatic complaints Allergic/Immunologic: Reports no additional allergic/immunologic complaints Reports system reviewed and no additional complaints, except as documented and Reports Abnormal speech present [facility] Past Medical History Medical History Type 2 diabetes mellitus Hip fracture Surgical History History of hip surgery Social History Social History Alcohol intake: never Advance Directives: Yes Advance Directives on File: Yes Advance Directives Date on File: 04/26/23 Physical Exam Vital Signs: Vital Signs: Last Vital Signs Pulse 88 06/07/23 19:02 Resp 18 06/07/23 19:02 BP 120/75 06/07/23 19:02 Pulse Ox 97 06/07/23 19:02 O2 Del Method Room Air 06/07/23 19:02 BMI result Body Mass Index 28.8 Vital signs have been reviewed and appear to be correct. Blood pressure elevated. Heart rate normal. Respiratory rate normal. Temperature normal. Oxygen saturation normal. Appearance: Alert. Oriented X3. No acute distress. Head: Normal external exam. Normocephalic. Atraumatic. No Zeng signs noted. No raccoon eyes noted Eyes: PERRLA. EOMI. Conjunctiva and sclera normal. Eyelids normal. ENT: TM's Normal. Pharynx normal. Uvula midline. Moist mucous membranes. No trismus noted. No drooling noted. No muffled voice noted. Neck: Normal inspection. Neck supple. FROM. No adenopathy. Thyroid Normal. No meningeal signs. No neck mass noted. CVS: Normal heart rate and rhythm. Heart sound normal. No murmurs noted. Pulses normal throughout. Respiratory: No respiratory distress. Painless inspiration. Breath sounds normal. No wheezes/rales/rhonchi noted. Chest nontender. No accessory muscle usage noted or decreased air movement noted. Abdomen: Soft and nontender. Bowel sounds normal in all 4 quadrants. No distention noted. No organomegaly noted. No visible injury noted. Back: No CVA tenderness. Full range of motion noted. Skin: Skin warm and dry. Normal skin color. Normal skin turgor. No rashes/lesions/lacerations noted. Extremities: No lower extremity edema. Extremities exhibit normal range of motion. Extremities nontender. Neuro: Oriented X 3. Cranial nerve exam: II-XII are grossly intact No motor deficit. No sensory deficit. Reflexes normal. Course Reevaluation(s) Reevaluation #1: Bilateral hip arthralgia, negative CT for acute fracture or malalignment, patient was instructed to follow-up with orthopedic use Tylenol/ibuprofen if needed for pain. Patient is able to ambulate with a walker in steady gait in the emergency department. Time: 00:28 Medications Administered Discontinued Medications Generic Name Dose Route Start Last Admin Trade Name Freq PRN Reason Stop Dose Admin Oxycodone HCl 5 mg 06/07/23 19:21 06/07/23 22:10 Oxycodone Hcl Immed Release 5 Mg Tablet PO 06/07/23 19:22 5 mg ONCE ONE Administration Medical Decision Making Differential Diagnosis Differential Diagnoses: The differential diagnosis associated with the presentation includes (Hip Fracture, hip dislocation, osteoarthritis, hip contusion, severe anemia, electrolyte abnormality.) Admission/Observation Consideration of admission/observation: Escalation of care including admission/observation considered Lab Data MDM Lab Attestation statement: I reviewed the patient's lab results. 06/07/23 22:41 06/07/23 22:41 Labs: Lab Results 06/07/23 Range/Units 22:41 WBC 6.4 (4.8-10.8) X10*3/uL RBC 4.59 L (4.60-5.80) X10*6/uL Hgb 13.2 L (14.0-18.0) g/dl Hct 38.3 L (42.0-52.0) % MCV 83.4 (80.0-98.0) fL MCH 28.8 (27.0-33.0) pg MCHC 34.5 (31.0-36.0) g/dl RDW 13.5 (11.0-16.0) % Plt Count 511 H (160-400) X10*3/uL MPV 9.3 L (9.4-12.4) fL Immature Gran % (Auto) 0.3 (0.0-0.4) % Neut % (Auto) 57.4 (45-73) % Lymph % (Auto) 28.4 (20-40) % [place] % (Auto) 11.4 H (2-11) % Eos % (Auto) 2.0 (0-4) % Baso % (Auto) 0.5 (0-2) % Lymph # (Auto) 1.8 (1.2-4.9) X10*3/uL [place] # (Auto) 0.7 (0.1-1.2) X10*3/uL Eos # (Auto) 0.1 (0.0-0.4) X10*3/uL Baso # (Auto) 0.0 (0.0-0.2) X10*3/uL Abs Immat Gran (auto) 0.02 (0.00-0.03) X10*3/uL Absolute Neuts (auto) 3.7 (2.0-8.3) x10*3/uL Absolute Nucleated RBC 0.000 (0.0-0.012) X10*3/uL Nucleated RBC % (auto) 0.0 (0.0-0.2) /100WBC Sodium 135 (135-145) mmol/L Potassium 3.2 L (3.3-5.1) mmol/L Chloride 99 (96-108) mmol/L Carbon Dioxide 24 (22-29) mmol/L Anion Gap 15 (12-20) BUN 10 (9-16) mg/dL Creatinine 1.21 (0.5-1.4) mg/dL Estim Creat Clear Calc 68.2 Estimated GFR 59 Random Glucose 328 H (60-115) mg/dL Calcium 9.2 (8.4-10.2) mg/dL Independent Interpretation I performed an independent interpretation of an: CT Scan (Bilateral hip x-ray:No acute fracture or dislocation. 3 cortical screws are seen through the previously noted right femoral neck fracture. Alignment is similar to the recent prior plain film study. ) Radiology Impression Discussion of test interpretation with radiology: I have reviewed the radiologist's reading. Chronic Conditions Patient?s care impacted by: Other (Chronic osteoarthritis) Discharge Plan Discharge Clinical Impression: Arthralgia of hip, left, Arthralgia of hip, right Patient Disposition: Home, Self-Care Instructions: Arthralgia (ED) Prescriptions: No Action atorvastatin 20 mg tablet 20 mg PO DAILY trazodone 50 mg tablet 25 mg PO BEDTIME pantoprazole 20 mg tablet,delayed release (DR/EC) 20 mg PO DAILY@0630 gabapentin 100 mg capsule 100 mg PO BID oxycodone 5 mg tablet 5 mg PO TID PRN (Reason: Pain) duloxetine 30 mg capsule,delayed release(DR/EC) 90 mg PO DAILY fludrocortisone 0.1 mg tablet 0.1 mg PO DAILY insulin glargine [Lantus Solostar U-100 Insulin] 100 unit/mL (3 mL) insulin pen 45 unit subcut BID acetaminophen [Tylenol] 325 mg Tablet 650 mg PO Q6H PRN (Reason: Pain) aspirin 81 mg Tablet,Delayed Release (Dr/Ec) 81 mg PO DAILY Rx Instructions: 81 mg orally daily ;START DATE: 05/05/23 cephalexin 500 mg capsule 500 mg PO TID 7 Days Qty: 21 0RF potassium chloride 10 mEq tablet extended release 20 meq PO DAILY Rx Instructions: finish 06/04/23 Referrals: Miguel Pryor MD [Physician] -
[2023-06-07] MEDS: oxyCODONE HCl Immed Release 5 MG TABLET PO (22:10)
[2023-06-07 22:48] LABS: MANUAL DIFF FLAG NO
[2023-06-07 22:49] LABS: Basophils Percent Auto 0.5 % (0-2); Eosinophils Absolute Auto 0.1 X10*3/uL (0.0-0.4); Hematocrit 38.3 % (42.0-52.0); Hemoglobin 13.2 g/dl (14.0-18.0); Imm Gran Abs Auto 0.02 X10*3/uL (0.00-0.03); Imm Gran Pct Auto 0.3 % (0.0-0.4); Lymphocytes Absolute Auto 1.8 X10*3/uL (1.2-4.9); Lymphocytes Percent Auto 28.4 % (20-40); Mean Corpuscular HGB Conc 34.5 g/dl (31.0-36.0); Mean Corpuscular Hemoglobin 28.8 pg (27.0-33.0); Mean Corpuscular Volume 83.4 fL (80.0-98.0); Mean Platelet Volume 9.3 fL (9.4-12.4); Monocytes Absolute Auto 0.7 X10*3/uL (0.1-1.2); Monocytes Percent Auto 11.4 % (2-11); Neutrophils Absolute Auto 3.7 x10*3/uL (2.0-8.3); Neutrophils Percent Auto 57.4 % (45-73); Platelet Count 511 X10*3/uL (160-400); Red Blood Count 4.59 X10*6/uL (4.60-5.80); Red Cell Distribution Width 13.5 % (11.0-16.0); White Blood Count 6.4 X10*3/uL (4.8-10.8)
[2023-06-07 23:02] LABS: Anion Gap 15 (12-20); Blood Urea Nitrogen 10 mg/dL (9-16); Calcium 9.2 mg/dL (8.4-10.2); Carbon Dioxide 24 mmol/L (22-29); Chloride 99 mmol/L (96-108); Creatinine Clr Calc Pharmacy 68.2; Estimated Glomerular Filt Rate 59; Glucose Random 328 mg/dL (60-115); Potassium 3.2 mmol/L (3.3-5.1); Sodium 135 mmol/L (135-145)
--- NOTE | 2023-06-08 00:33 | PC.NURSE ---
pt refusing vitals
== END 2023-06-08 00:35 | disposition home or self-care (01) ==
PROVIDERS: Emergency Provider Emergency Medicine
DX: M25.551 Pain in right hip (principal); M25.552 Pain in left hip; R10.2 Pelvic and perineal pain; Z79.899 Other long term (current) drug therapy
CPT/HCPCS: 36415; 72192; 80048; 85025; 99282; 99284